=== PATIENT | female | born 1930 | race Caucasian/White ===

== ENCOUNTER 2017-05-16 15:16 | Inpatient (IN) ==
[2017-05-16] MEDS ORDERED: Ipratropium/Albuterol Neb 3 ML IH ONE ×2 (15:50→18:41)
[2017-05-16] MEDS ORDERED: methylPREDNISolone 125 MG/2 ML VIAL IVP ONE (15:50)
--- NOTE | 2017-05-16 15:51 | Emergency Department Note ---
Disposition Clinical Impression: COPD exacerbation, Elevated troponin Pneumonia Qualifiers: Pneumonia type: due to unspecified organism Laterality: bilateral Lung location : unspecified part of lung Qualified Code(s): J18.9 - Pneumonia, unspecified organism Disposition: Admitted As Inpatient Condition: Fair Time of Disposition: 18:52 General Adult HPI - General Chief complaint: ED Shortness of Breath/Dyspnea Stated complaint: congestion Time Seen by Provider: 05/16/17 15:41 Source: patient Limitations: no limitations Nursing Notes Reviewed: Yes Vital Signs Reviewed: Yes - History of Present Illness HPI Narrative: Patient is an 86-year-old female with a past medical of atrial fibrillation, HTN , ID, and COPD presenting to the emergency department for 3 days of wheezing and increasing shortness of breath. The patient was recently discharged from [facility] 3 days ago after having a total left knee replacement. She states on discharge she was feeling wheezy at that time however it is progressed over the past 3 days. She has also been spiking fevers according to family and they have been treating that with Tylenol and she has been doing at home albuterol treatments which she received 2 of yesterday. She states she is also more winded when she is up and ambulatory. Pain Scale: 6 - Related Data Home Medications Medication Instructions Recorded Confirmed Albuterol Sulfate [Ventolin Hfa] 2 puff IH Q4H PRN 05/17/17 05/17/17 Aspirin [Lo-Dose Aspirin EC] 81 mg PO DAILY 05/17/17 05/17/17 Dabigatran [Pradaxa] 150 mg PO BID 05/17/17 05/17/17 Diltiazem HCl [Diltiazem 24Hr Cd] 240 mg PO DAILY 05/17/17 05/17/17 Ferrous Sulfate [Iron] 325 mg PO DAILY 05/17/17 05/17/17 Fluticasone/Salmeterol [Advair 1 puff IH BID 05/17/17 05/17/17 500-50 Diskus] Furosemide [Lasix] 40 mg PO DAILY 05/17/17 05/17/17 HYDROcodone/Acet 5/325 mg [[place] 1 tab PO Q4-6H PRN 05/17/17 05/17/17 5-325 mg] Losartan Potassium [Cozaar] 50 mg PO DAILY 05/17/17 05/17/17 Metoprolol [Lopressor] 25 mg PO BID 05/17/17 05/17/17 Montelukast [Singulair] 10 mg PO HS 05/17/17 05/17/17 Potassium Chloride [Klor-Con 10] 10 meq PO BID 05/17/17 05/17/17 Sertraline [Zoloft] 100 mg PO DAILY 05/17/17 05/17/17 Vit C/E/Zn/Coppr/Lutein/Zeaxan 1 cap PO BID 05/17/17 05/17/17 [Preservision Areds 2 Softgel] Allergies Allergy/AdvReac Type Severity Reaction Status Date / Time acetaminophen [From Percocet] Allergy Confusion Verified 09/02/16 13:59 gabapentin [From Neurontin] Allergy See Verified 02/14/15 00:55 Comments Oxycodone [From Percocet] Allergy Confusion Verified 09/02/16 13:59 Sulfa (Sulfonamide Allergy Itching Verified 02/14/15 00:55 Antibiotics) All systems ED: reviewed and negative except as stated. Review of Systems: As Per HPI Constitutional: Reports: fever, chills ENT ED: Reports: congestion. Denies: throat pain Cardiovascular: Denies: chest pain, palpitations Respiratory: Reports: cough, dyspnea, wheezes Gastrointestinal: Reports: nausea, vomiting (Cough-induced). Denies: abdominal pain Genitourinary: Denies: urgency, dysuria Musculoskeletal: Denies: back pain, neck pain Integumentary: Denies: rash, abrasion Past Medical History - Past Medical History Attestation: Yes The following information was validated with the patient. Medical history: Reports: atrial fibrillation, cancer, COPD, CVA, hypertension, myocardial infarction Surgical history: Reports: hysterectomy Psychiatric history: Reports: no psych history JACKHAMMER SPLITTER OPERATOR history: Reports: no JACKHAMMER SPLITTER OPERATOR history - Social History Smoking Status: Never smoker Smokeless Tobacco Status: No Alcohol use: Reports: none Drug use: Reports: none Physical Exam CONSTITUTIONAL: Alert and oriented X3, she speaks in full sentences. She has auditory wheezing from bedside. Vital signs are stable at this time. HEAD: Normocephalic; atraumatic. EYES: PERRL, no scleral icterus. NOSE: The nose is normal in appearance without rhinorrhea RESP: Normal chest excursion with respiration; breath sounds are wheezing throughout all lung patiño CARD: Regular rhythm, without murmurs, rub or gallop ABD: Non-distended; non-tender, soft,without rigidity, rebound or guarding SKIN: Normal for age and race; warm and dry; no apparent lesions - General Limitations: no limitations General appearance: alert Course Course Narrative: With the patient's presentation and recent hospital admission the plan is to work her up for COPD versus pneumonia. We will also consider pulmonary embolism patient's labs results CTA of the chest will be ordered. We will start with steroids, breathing treatments and pending x-ray results initiate antibiotics. - Reevaluation(s) Reevaluation #1: IV antibiotics were initiated patient's chest x-ray shows a multifocal pneumonia. Cultures were obtained prior to antibiotic administration. She states she feels her breathing has improved, the patient does appear fatigued to place her on IV oxygen to assist with breathing. CTA is ordered to rule out pulmonary embolism. Plan at this time is to admit the patient for pneumonia and COPD exacerbation. Time: 17:15 Vital Signs Temperature 99.5 F 05/16/17 15:20 Pulse Rate 96 05/16/17 15:20 Respiratory Rate 20 05/16/17 15:20 Blood Pressure 126/74 05/16/17 15:20 O2 Sat by Pulse Oximetry 94 05/16/17 15:20 Temperature 98.6 F 05/20/17 18:45 Pulse Rate 77 05/20/17 18:45 Respiratory Rate 17 05/20/17 18:45 Blood Pressure 148/61 05/20/17 18:45 O2 Sat by Pulse Oximetry 95 05/20/17 18:45 Oxygen Delivery Oxygen Delivery Room Air Medical Decision Making - Medical Records Medical records reviewed: Yes I reviewed the patient's medical records. - Lab Data Lab results reviewed: Yes I reviewed the patient's lab results. Result diagrams: 05/20/17 04:45 05/20/17 04:45 Lab Results 05/16/17 05/16/17 05/16/17 Range/Units 15:50 16:20 16:20 WBC 4.3 (4.3-11.1) K/mcL RBC 2.78 L (3.82-4.97) M/mcL Hgb 7.9 L (11.5-15.4) g/dL Hct 24.4 L (35.3-44.9) % MCV 87.8 (83.0-100.0) fL MCH 28.4 (28.0-33.3) pg MCHC 32.4 (31.6-35.5) g/dL RDW 13.6 (11.5-14.5) % Plt Count 190 (140-400) K/mcL MPV 9.0 L (9.4-12.4) fL Immature Gran % 1.2 (0-4) % Seg Neutrophils % 81.1 % Lymphocytes % 7.1 % Monocytes % 10.4 % Eosinophils % 0.0 % Basophils % 0.2 % Neutrophils # 3.5 (1.6-8.9) K/mcL Lymphocytes # 0.3 L (0.6-4.6) K/mcL Monocytes # 0.4 (0.0-1.3) K/mcL Eosinophils # 0.0 (0.0-0.6) K/mcL Basophils # 0.0 (0.0-0.2) K/mcL Immature Plt Fraction 1.9 (1.1-6.1) % Sodium 137 (136-145) mEq/L Potassium 3.9 (3.5-5.1) mEq/L Chloride 106 (98-107) mEq/L Carbon Dioxide 23 (23-29) mEq/L BUN 17 (8-23) mg/dL Creatinine 0.73 (0.60-1.20) mg/dL Est GFR ( Amer) > 60 (> 60) Est GFR (Non-Af Amer) > 60 (> 60) BUN/Creatinine Ratio 23 (6-26) Glucose 129 H (70-105) mg/dL Calculated Osmolality 287 (280-300) Lactic Acid (0.5-2.2) mmol/L Calcium 8.5 L (8.6-10.3) mg/dL Troponin I 0.24 H* (< 0.04) ng/mL B-Natriuretic Peptide 611 H (Less than 100) pg/mL 05/16/17 Range/Units 17:31 WBC (4.3-11.1) K/mcL RBC (3.82-4.97) M/mcL Hgb (11.5-15.4) g/dL Hct (35.3-44.9) % MCV (83.0-100.0) fL MCH (28.0-33.3) pg MCHC (31.6-35.5) g/dL RDW (11.5-14.5) % Plt Count (140-400) K/mcL MPV (9.4-12.4) fL Immature Gran % (0-4) % Seg Neutrophils % % Lymphocytes % % Monocytes % % Eosinophils % % Basophils % % Neutrophils # (1.6-8.9) K/mcL Lymphocytes # (0.6-4.6) K/mcL Monocytes # (0.0-1.3) K/mcL Eosinophils # (0.0-0.6) K/mcL Basophils # (0.0-0.2) K/mcL Immature Plt Fraction (1.1-6.1) % Sodium (136-145) mEq/L Potassium (3.5-5.1) mEq/L Chloride (98-107) mEq/L Carbon Dioxide (23-29) mEq/L BUN (8-23) mg/dL Creatinine (0.60-1.20) mg/dL Est GFR ( Amer) (> 60) Est GFR (Non-Af Amer) (> 60) BUN/Creatinine Ratio (6-26) Glucose (70-105) mg/dL Calculated Osmolality (280-300) Lactic Acid 2.4 H (0.5-2.2) mmol/L Calcium (8.6-10.3) mg/dL Troponin I (< 0.04) ng/mL B-Natriuretic Peptide (Less than 100) pg/mL - Radiology Data Radiology results reviewed: Yes I reviewed the patient's radiology results. Chest X-Ray 05/16/17 15:50 IMPRESSION: 1. Focal right lower lobe consolidation and patchy opacities of the left lung base which are highly suspicious for multifocal pneumonia. 2. Mild central pulmonary vascular congestion. D/ / Navin Kumar MD / Navin Kumar MD Interpreting Provider: Navin Kumar MD - EKG Data EKG #1 EKG attestation: Yes I reviewed and interpreted this EKG. EKG results narrative: EKG done at 16:05 shows sinus rhythm at a rate of 71 bpm. MI is 178, QRS is 82 , QT is 293 and QTc is 416 these are within normal limits.No signs of ST elevation, depression or Q waves present. No signs of ischemia. This is unchanged when compared to EKG done on June 122015.
[2017-05-16 16:30] LABS: Basophils % 0.2 %; Hematocrit 24.4 % (35.3-44.9); Immature Granulocytes % 1.2 % (0-4); Immature Platelets 1.9 % (1.1-6.1); Lymphocytes # 0.3 K/mcL (0.6-4.6); Lymphocytes % 7.1 %; Mean Corpuscular HGB Conc 32.4 g/dL (31.6-35.5); Mean Corpuscular Hemoglobin 28.4 pg (28.0-33.3); Mean Corpuscular Volume 87.8 fL (83.0-100.0); Monocytes # 0.4 K/mcL (0.0-1.3); Monocytes % 10.4 %; Neutrophils # 3.5 K/mcL (1.6-8.9); Platelet Count 190 K/mcL (140-400); Red Blood Count 2.78 M/mcL (3.82-4.97); Red Cell Distribution Width 13.6 % (11.5-14.5); Segmented Neutrophils % 81.1 %
[2017-05-16] MEDS ORDERED: Cefepime HCl 2,000 MG in Water for inj. (sterile) 20 ML 20 ML IVP STA (17:00)
[2017-05-16 17:04] LABS: Troponin I 0.24 ng/mL (< 0.04)
[2017-05-16] MEDS ORDERED: Benzonatate 100 MG CAPSULE PO STA (17:05)
--- NOTE | 2017-05-16 17:42 | Emergency Department Note ---
START Narrative - START START: I examined this patient and my medical decision-making was reviewed with the Resident Physician. I agree with the documented findings, disposition and treatment plan as described except to the extent set forth below. 86-year-old female presents to the ER for cough and shortness of breath. She does had a recent left knee replacement done at [facility]. She presents today with cough and increasing shortness of breath associated with fevers and diaphoresis. Workup here reveals some pneumonia present. She has evidence of multifocal pneumonia. We did start her on [facility] hospital -acquired pneumonia with cefepime and vancomycin. She is hemodynamically stable.
[2017-05-16 18:10] LABS: BUN/Creatinine Ratio 23 (6-26); Blood Urea Nitrogen 17 mg/dL (8-23); Calcium 8.5 mg/dL (8.6-10.3); Carbon Dioxide 23 mEq/L (23-29); Chloride 106 mEq/L (98-107); Glucose 129 mg/dL (70-105); Osmolality,Calculated 287 (280-300); Potassium 3.9 mEq/L (3.5-5.1); Sodium 137 mEq/L (136-145); eGFR For African Americans > 60 (> 60); eGFR For Non-African Americans > 60 (> 60)
[2017-05-16 18:11] LABS: Hemoglobin 7.9 g/dL (11.5-15.4)
[2017-05-16] MEDS ORDERED: Naloxone 0.4 MG/ML INJ IVP PRN (20:08)
[2017-05-16] MEDS ORDERED: Ipratropium/Albuterol Neb 3 ML IH PRN (20:38)
--- NOTE | 2017-05-16 20:53 | Internal Med History&Physical ---
<Ramón Man Merary - Last Filed: 05/16/17 20:45> Date of Encounter: 05/16/17 Time of Encounter: 19:46 Assessment and Plan (1) HCAP (healthcare-associated pneumonia) Current visit: Yes Status: Acute Recently in the hospital, 5 days s/p right total knee replacement and discharged 3 days ago On exam with wheezes and rhonchi bilaterally Chest x-ray shows multifocal pneumonia, with consolidation in the right lower lobe and left base CTA of the chest shows no PE, multifocal pneumonia, and small bilateral pleural effusions Temperature 99.5, WBC 4.3 Lactic acid is elevated at 2.4, however the patient does not meet sepsis criteria. We will recheck lactic acid With recent hospitalization, there is concern for pseudomonas or MRSA Blood cultures and sputum culture are pending. Rapid influenza pending Will start cefepime and vancomycin CODE STATUS: discussed code status with the patient. She does not want CPR or Intubation. DNR-CCA, DNI. (2) COPD exacerbation Current visit: Yes Status: Acute Wheezes throughout lung patiño on exam Exacerbation of COPD is secondary to multifocal pneumonia Upon my assessment the patient's oxygen saturation is mid-upper 90's on RA Will provide prednisone 40 mg daily and DuoNeb's (3) Elevated troponin Current visit: Yes Status: Acute Troponin 0.24. ECG shows normal sinus rhythm with no ST elevation or depression. Patient denies chest pain Patient does have a history of CAD. Stress test on 05/07/17 showed no evidence of ischemia Patient does take Lasix for lower extremity edema, there is no history of CHF - BNP is elevated at 611, but patient does not appear clinically fluid overload. Will continue home Lasix - At this time Dyspnea appears secondary to PNA and COPD exacerbation Likely demand ischemia, but will continue to trend troponins x3 (4) Anemia Current visit: Yes Status: Acute Hemoglobin is 7.9, which is lower than previous evaluations (9-12) Patient did report having a dark bowel movement this morning, but she has been taking iron supplementation She denies hematochezia, hematuria, or hemoptysis Likely related to having surgery 5 days ago, will continue iron supplementation and continue to monitor CBC Qualifiers: Anemia type: unspecified type Qualified Code(s): D64.9 - Anemia, unspecified (5) Atrial fibrillation Current visit: No Status: Acute Currently in normal sinus rhythm and rate controlled Anticoagulation with Peridex, will continue during this hospitalization Qualifiers: Atrial fibrillation type: paroxysmal Qualified Code(s): I48.0 - Paroxysmal atrial fibrillation (6) Hypertension Current visit: No Status: Chronic Normotensive currently. Continue home medications Qualifiers: Hypertension type: essential hypertension Qualified Code(s): I10 - Essential (primary) hypertension (7) DVT prophylaxis Current visit: Yes Status: Acute On Pradaxa Internal Medicine - H&P: HPI Chief complaint: Dyspnea Admitted From: Emergency Dept History of present illness: Ms. Ho is a 86 year old female with PMH of A. fib, hypertension, COPD, previous PA, and CVA, presented in the emergency department with chief complaint dyspnea and wheezing. She was recently at [facility] for a right total knee replacement, and was discharged 3 days ago. She reports no problems with the surgery, and that her knee is doing well, but since discharge she has been having worsening shortness of breath and wheezing. Associated symptoms include fatigue, fever, chills, headache, lightheadedness, chest congestion, productive cough, nausea, and vomiting. Her symptoms are worse with exertion. She does admit to some orthopnea, however her lower extremity edema is unchanged. She denies syncope, chest pain, abdominal pain, change in bowels, hematochezia, dysuria, or hematuria. She does report a darker bowel movement this morning, her first BM since surgery, started on iron supplementation upon discharge from the hospital. She reports that her knee has been doing well, and she denies swelling in her knee or drainage from the incision. She is able to ambulate well and states that her pain is controlled with Tylenol. She is not fond of codeine or Percocet. Past Med Surg Social Fam HX - Past Medical History Medical history: atrial fibrillation, cancer, COPD, CVA, hypertension, myocardial infarction Psychiatric history: no psych history - Past Surgical History Surgical History: hysterectomy - Social History Smoking Status: Never smoker Smokeless Tobacco Status: No Alcohol use: none Drug use: none - Family History Mother Hx Family Cardiac Disorders: Yes (PA) Hx Family Neurologic Disorders: Yes (Stroke) Father Hx Family Cardiac Disorders: Yes (PA) Hx Family Neurologic Disorders: Yes (Stroke) Internal Medicine - H&P: Meds Albuterol Sulfate [Albuterol Inhaler] 2 puff IH Q4HR 02/15/15 [History] Aspirin [Adult Low Dose Aspirin EC] 81 mg PO QAM 02/15/15 [History] Atorvastatin [Lipitor] 10 mg PO QAM 02/15/15 [History] Dabigatran [Pradaxa] 150 mg PO BID 02/15/15 [History] Ergocalciferol (VITAMIN D2) [Vitamin D2 (50,000 UNIT)] 50,000 unit PO QWEEK PRN 02/15/15 [History] Furosemide [Lasix] 40 mg PO QAM 02/15/15 [History] Linaclotide [Linzess] 290 mcg PO DAILY 02/15/15 [History] Losartan [Cozaar] 50 mg PO QAM 02/15/15 [History] Montelukast [Singulair] 10 mg PO QPM 02/15/15 [History] Sertraline [Zoloft] 50 mg PO QAM 02/15/15 [History] Azithromycin [Zithromax] 250 mg PO Q24H #3 tablet 02/20/15 [Rx] B Complex with Vitamin C [Vitamin B-Complex with Vit C] 1 each PO DAILY #30 capsule 02/20/15 [Rx] Cefdinir [Omnicef] 300 mg PO BID #14 capsule 02/20/15 [Rx] Diltiazem CD (24hr) [Cardizem CD] 240 mg PO DAILY #30 cap.er.24h 02/20/15 [Rx] HYDROcodone BIT/Homatropine LQ [Hycodan Syrup] 5 mg PO Q4HR PRN #60 ml 02/20/15 [Rx] Ipratropium/Albuterol Neb [Duoneb] 3 ml IH Q2H PRN #120 inhsol 02/20/15 [Rx] Metoprolol [Lopressor] 50 mg PO BID #60 tablet 02/20/15 [Rx] Spironolactone [Aldactone] 25 mg PO DAILY #30 tablet 02/20/15 [Rx] predniSONE [PredniSONE] 20 mg PO DAILY #7 tablet 02/20/15 [Rx] Ondansetron [Zofran] 4 mg PO Q8HR #25 tablet 06/10/15 [Rx] OxyCODONE/APAP 5/325 [Percocet 5/325 MG] 1 each PO Q4HR PRN #20 tablet 04/10/16 [Rx] Acyclovir [Zovirax] 800 mg PO 5XD #35 tablet 09/02/16 [Rx] Cephalexin [Keflex] 500 mg PO BID #20 capsule 09/02/16 [Rx] Mupirocin [Bactroban Oint] 1 appl TP BID #1 tube 09/02/16 [Rx] 3 Allergy/AdvReac Type Severity Reaction Status Date / Time acetaminophen [From Percocet] Allergy Confusion Verified 09/02/16 13:59 gabapentin [From Neurontin] Allergy See Verified 02/14/15 00:55 Comments Oxycodone [From Percocet] Allergy Confusion Verified 09/02/16 13:59 Sulfa (Sulfonamide Allergy Itching Verified 02/14/15 00:55 Antibiotics) All Systems PM: A 10-system review of systems was performed and is negative for pertinent findings except as documented above in the HPI. - Constitutional Vitals: Temp Pulse Resp BP Pulse Ox 99.5 F 84 18 121/58 93 05/16/17 15:20 05/16/17 20:20 05/16/17 20:20 05/16/17 20:20 05/16/17 20:20 General appearance: Present: A&O X 3, no acute distress, answers questions appropriately - Head Head exam: Present: atraumatic, normocephalic - Eye Eye exam: Present: PERRL, conjuntiva pink, sclera anicteric - Neck Neck exam general surgery: Present: supple, trachea midline. Absent: lymphadenopathy - Respiratory Respiratory exam: Present: rhonchi (bilaterally, worse in bases), wheezes ( bilaterally throughout). Absent: accessory muscle use, CTAB, rales - Cardiovascular Cardiovascular exam: Present: RRR, +S1, +S2. Absent: diastolic murmur, systolic murmur - GI/Abdominal GI/Abdominal exam: Present: normal bowel sounds, soft, no peritoneal signs. Absent: distended, tenderness - Extremities Exam Extremities exam: Present: normal capillary refill, normal inspection, pedal edema (mild bilaterally), warm, radial pulses palpable and symmetrical. Absent : calf tenderness, cyanotic, joint swelling Additional comments: Bandage in place around right knee, no drainage noted on bandage - Neurological Exam Neurological exam: Present: CN II-XII intact, oriented X3, no focal deficits. Absent: facial droop, speech deficit - Skin Skin exam: Present: dry, intact. Absent: diaphoretic, erythema Internal Med - H&P Results - Labs CBC & Chem 7: 05/16/17 16:20 05/16/17 15:50 <Pauly Cope - Last Filed: 05/16/17 22:22> Date of Encounter: 05/16/17 Internal Medicine - H&P: HPI History of present illness: Ms. Ho is a 86 year old female All Systems PM: A 10-system review of systems was performed and is negative for pertinent findings except as documented above in the HPI. - Constitutional Vitals: Temp Pulse Resp BP Pulse Ox 98.5 F 83 18 120/61 95 05/16/17 21:07 05/16/17 21:07 05/16/17 21:07 05/16/17 21:07 05/16/17 21:07 Internal Med - H&P Results - Labs CBC & Chem 7: 05/16/17 16:20 05/16/17 15:50 - Attending Attestation I have seen and examined this patient independently. I have discussed with resident physician Dr. Man regarding the management plan. Agree with the documentation
[2017-05-16] MEDS: Ipratropium/Albuterol Neb 3 ML IH SCH (22:28)
[2017-05-16] MEDS: *HR* Dabigatran 150 MG CAPSULE PO SCH (22:48)
[2017-05-17] MEDS ORDERED: Ipratropium/Albuterol Neb 3 ML IH SCH
[2017-05-17] MEDS: Cefepime HCl 2,000 MG in Water for inj. (sterile) 20 ML 20 ML IVP SCH ×3 (03:36→17:04)
[2017-05-17] MEDS: Ipratropium/Albuterol Neb 3 ML IH SCH ×4 (03:45→21:39)
[2017-05-17 05:58] LABS: Hemoglobin 7.8 g/dL (11.5-15.4); Lymphocytes # 0.4 K/mcL (0.6-4.6); Lymphocytes % 13.4 %; Mean Corpuscular HGB Conc 32.5 g/dL (31.6-35.5); Mean Platelet Volume 9.7 fL (9.4-12.4); Monocytes # 0.1 K/mcL (0.0-1.3); Monocytes % 4.8 %; Neutrophils # 2.3 K/mcL (1.6-8.9); Platelet Count 166 K/mcL (140-400); Red Blood Count 2.79 M/mcL (3.82-4.97); Red Cell Distribution Width 13.7 % (11.5-14.5); Segmented Neutrophils % 80.8 %
[2017-05-17 06:01] LABS: INR 1.5
[2017-05-17 06:03] LABS: Activated Partial Thrombo Time 45.9 Seconds (26.0-36.0)
[2017-05-17 06:27] LABS: BUN/Creatinine Ratio 27 (6-26); Blood Urea Nitrogen 19 mg/dL (8-23); Calcium 8.5 mg/dL (8.6-10.3); Carbon Dioxide 23 mEq/L (23-29); Chloride 107 mEq/L (98-107); Glucose 202 mg/dL (70-105); Osmolality,Calculated 294 (280-300); Potassium 4.2 mEq/L (3.5-5.1); Sodium 138 mEq/L (136-145); eGFR For African Americans > 60 (> 60); eGFR For Non-African Americans > 60 (> 60)
[2017-05-17] MEDS: (Linaclotide [Linzess] 290 MCG) PO SCH (07:33)
[2017-05-17] MEDS: Aspirin Enteric Coated 81 MG Tablet PO SCH (08:43)
[2017-05-17] MEDS: predniSONE 20 MG TABLET PO SCH (08:43)
[2017-05-17] MEDS: Diltiazem CD (24hr) 240 MG CAPSULE PO SCH (08:43)
[2017-05-17] MEDS: *HR* Dabigatran 150 MG CAPSULE PO SCH ×2 (08:43→21:13)
[2017-05-17] MEDS: Vitamin B Complex/Vit C/Vit E 1 EACH TABLET PO SCH (08:44)
[2017-05-17] MEDS: Iron Polysaccharide Complex 150 MG CAPSULE PO SCH (08:44)
[2017-05-17] MEDS: Furosemide 40 MG TABLET PO SCH (08:48)
[2017-05-17] MEDS: Acetaminophen 325 MG TABLET PO PRN (10:32)
[2017-05-17 11:44] LABS: Hematocrit 24.6 % (35.3-44.9); Hemoglobin 8.2 g/dL (11.5-15.4)
--- NOTE | 2017-05-17 13:40 | Internal Med Progress Note ---
Date of Encounter: 05/17/17 Time of Encounter: 10:30 - Assessment and plan (1) Anemia Current Visit: Yes Status: Acute Assessment and plan: Continue FeS04. Trending, improving today. Qualifiers: Anemia type: unspecified type Qualified Code(s): D64.9 - Anemia, unspecified (2) COPD exacerbation Current Visit: Yes Status: Acute Assessment and plan: Acute exacerbation, secondary to pneumonia. Wheezing throughout all lung patiño. Continue 02-maintain sats > 92% Duonebs Prednisone 40mg po daily (3) Elevated troponin Current Visit: Yes Status: Acute Assessment and plan: Flat and adynamic elevation that is declining in the setting of CHF, pna, and Copd exacerbation. Most likely demand ischemia. Pt denies chest pain. Continue telemetry (4) HCAP (healthcare-associated pneumonia) Current Visit: Yes Status: Acute Assessment and plan: Left knee replacement 6 days ago, discharged 3 days ago from [place]. Pt being treated for HCAP with Cefepime and Vancomycin iv Sputum culture negative. Pt afebrile and without tachycardia. Chest xray shows multifocal pna, small bilateral pleural effusions, CTA chest shows no PE. Lactic was elevated, however, returned to WNL continue IV antibiotics Monitor VS and pt condition 02 as needed to maintain sats > 92% (5) Atrial fibrillation Current Visit: Yes Status: Acute Assessment and plan: Rate controlled. Continue BB and Pradaxa. Qualifiers: Atrial fibrillation type: paroxysmal Qualified Code(s): I48.0 - Paroxysmal atrial fibrillation (6) Hypertension Current Visit: No Status: Chronic Assessment and plan: Chronic. Continue home medications. Well controlled. Monitor VS per admission orders. Qualifiers: Hypertension type: essential hypertension Qualified Code(s): I10 - Essential (primary) hypertension (7) DVT prophylaxis Current Visit: Yes Status: Acute Assessment and plan: CAROLEE huddleston ordered and applied - Time Spent With Patient less than 15 minutes - Constitutional Vitals: Temp Pulse Resp BP Pulse Ox 98.7 F 76 16 124/62 95 05/17/17 11:39 05/17/17 11:39 05/17/17 11:39 05/17/17 11:39 05/17/17 11:39 General appearance: Present: cooperative, A&O X 3, pleasant, no acute distress, answers questions appropriately - Head Head exam: Present: atraumatic, normal inspection, normocephalic - Eye Eye exam: Present: normal appearance, conjuntiva pink, sclera anicteric - Neck Neck exam general surgery: Present: supple, trachea midline. Absent: lymphadenopathy, tenderness - Respiratory Respiratory exam: Present: decreased breath sounds, wheezes. Absent: accessory muscle use, CTAB, rales, respiratory distress, rhonchi - Cardiovascular Cardiovascular exam: Present: RRR, +S1, +S2. Absent: bradycardia, diastolic murmur, gallop, rubs, systolic murmur, tachycardia - GI/Abdominal GI/Abdominal exam: Present: normal bowel sounds, soft. Absent: distended, hepatomegaly, tenderness - Extremities Exam Extremities exam: Present: normal capillary refill, normal inspection, warm, radial pulses palpable and symmetrical. Absent: calf tenderness, cyanotic, pedal edema, tenderness Additional comments: Patient with moderate left lower extremity edema status post knee replacement 6 days ago. - Neurological Exam Neurological exam: Present: alert, oriented X3, no focal deficits. Absent: facial droop, speech deficit - Skin Skin exam: Present: dry, intact, normal color, warm. Absent: rash Internal Medicine: Result - Labs CBC & Chem 7: 05/17/17 11:09 05/17/17 05:20 Labs: Short CBC 05/17/17 05/17/17 Range/Units 05:20 11:09 WBC 2.9 L (4.3-11.1) K/mcL Hgb 7.8 L 8.2 L (11.5-15.4) g/dL Hct 24.0 L 24.6 L (35.3-44.9) % Plt Count 166 (140-400) K/mcL Neutrophils # 2.3 (1.6-8.9) K/mcL BMP 05/17/17 05:20 Sodium 138 Potassium 4.2 Chloride 107 Carbon Dioxide 23 BUN 19 Creatinine 0.70 Glucose 202 H Calcium 8.5 L Cardiac Enzymes 05/16/17 05/17/17 Range/Units 21:44 05:20 Troponin I 0.19 H* 0.10 H* (< 0.04) ng/mL - ABG Interpretation ABG results: PT/INR, D-dimer PT 16.0 Seconds (9.4-12.1) H 05/17/17 05:20 Consult Discharge Plan - Plan Referrals: Glenis Kirk MD [Primary Care Provider] -
[2017-05-17 16:54] LABS: Hematocrit 24.6 % (35.3-44.9); Hemoglobin 8.1 g/dL (11.5-15.4)
[2017-05-17 22:06] LABS: Hematocrit 23.5 % (35.3-44.9); Hemoglobin 7.6 g/dL (11.5-15.4)
[2017-05-18] MEDS: Ipratropium/Albuterol Neb 3 ML IH SCH ×4 (04:16→22:05)
[2017-05-18] MEDS: Cefepime HCl 2,000 MG in Water for inj. (sterile) 20 ML 20 ML IVP SCH ×3 (04:26→17:11)
[2017-05-18] MEDS: Acetaminophen 325 MG TABLET PO PRN (05:09)
[2017-05-18 05:10] LABS: Basophils % 0.1 %; Hematocrit 23.2 % (35.3-44.9); Hemoglobin 7.7 g/dL (11.5-15.4); Lymphocytes # 1.3 K/mcL (0.6-4.6); Lymphocytes % 16.2 %; Mean Corpuscular HGB Conc 33.2 g/dL (31.6-35.5); Mean Corpuscular Hemoglobin 28.6 pg (28.0-33.3); Mean Corpuscular Volume 86.2 fL (83.0-100.0); Mean Platelet Volume 9.6 fL (9.4-12.4); Monocytes # 0.7 K/mcL (0.0-1.3); Monocytes % 8.1 %; Neutrophils # 6.1 K/mcL (1.6-8.9); Platelet Count 206 K/mcL (140-400); Red Blood Count 2.69 M/mcL (3.82-4.97); Segmented Neutrophils % 74.6 %
[2017-05-18 05:21] LABS: Platelet Estimate Normal (Normal)
[2017-05-18 05:23] LABS: Anisocytosis 1+ (Not Present)
[2017-05-18 05:31] LABS: BUN/Creatinine Ratio 30 (6-26); Blood Urea Nitrogen 25 mg/dL (8-23); Carbon Dioxide 23 mEq/L (23-29); Chloride 107 mEq/L (98-107); Glucose 115 mg/dL (70-105); Osmolality,Calculated 291 (280-300); Potassium 3.6 mEq/L (3.5-5.1); Sodium 138 mEq/L (136-145); eGFR For African Americans > 60 (> 60); eGFR For Non-African Americans > 60 (> 60)
[2017-05-18 08:36] LABS: % Iron Saturation 9 % (15-50); Iron 25 mcg/dL (50-170); Transferrin 191 mg/dL (203-362)
[2017-05-18 09:02] LABS: Folate 18.3 ng/mL (3.0-16.0)
[2017-05-18] MEDS: *HR* Dabigatran 150 MG CAPSULE PO SCH ×2 (10:01→20:04)
[2017-05-18] MEDS: Furosemide 40 MG TABLET PO SCH (10:02)
[2017-05-18] MEDS: Aspirin Enteric Coated 81 MG Tablet PO SCH (10:02)
[2017-05-18] MEDS: predniSONE 20 MG TABLET PO SCH (10:02)
[2017-05-18] MEDS: Vitamin B Complex/Vit C/Vit E 1 EACH TABLET PO SCH (10:02)
[2017-05-18] MEDS: Iron Polysaccharide Complex 150 MG CAPSULE PO SCH (10:02)
[2017-05-18] MEDS: Diltiazem CD (24hr) 240 MG CAPSULE PO SCH (10:02)
[2017-05-18] MEDS: (Linaclotide [Linzess] 290 MCG) PO SCH (10:07)
[2017-05-18 10:53] LABS: Hematocrit 24.9 % (35.3-44.9)
[2017-05-18 12:15] LABS: Bilirubin,Urine Negative (Negative); Blood,Urine Negative (Negative); Clarity,Urine Clear (Clear); Color,Urine Yellow (Yellow); Glucose,Urine (UA) Normal (Normal); Ketones,Urine Negative (Negative); Leukocyte Esterase,Urine Negative (Negative); Nitrite,Urine Negative (Negative); Protein,Urine Negative (Neg-Trace); Specific Gravity,Urine 1.011 (1.010-1.025); Urobilinogen,Urine Normal (Normal)
[2017-05-18 15:51] LABS: Hematocrit 27.6 % (35.3-44.9)
--- NOTE | 2017-05-18 19:09 | Internal Med Progress Note ---
Date of Encounter: 05/18/17 Time of Encounter: 10:25 - Assessment and plan (1) Anemia Current Visit: Yes Status: Acute Assessment and plan: Continue FeS04. Trending, improving today. Iron is still low at 25, percent saturation is 9. Hemoglobin is increasing, serial troponins throughout the day has increased from 7.7-9.0. Continue to monitor labs daily. Qualifiers: Anemia type: unspecified type Qualified Code(s): D64.9 - Anemia, unspecified (2) COPD exacerbation Current Visit: Yes Status: Acute Assessment and plan: Acute exacerbation, secondary to pneumonia. Wheezing throughout all lung patiño. Patient and family at bedside reports that despite audible wheezing, patient is approximately at her 80% baseline. Patient and family both report chronic audible wheezing daily. Continue 02-maintain sats > 92% Duonebs Prednisone 40mg po daily (3) Elevated troponin Current Visit: Yes Status: Acute Assessment and plan: Flat and adynamic elevation that is declining in the setting of CHF, pna, and Copd exacerbation. Most likely demand ischemia. Pt denies chest pain. Continue telemetry (4) HCAP (healthcare-associated pneumonia) Current Visit: Yes Status: Acute Assessment and plan: Recent admission at [facility] for left knee surgery. Pt being treated for HCAP with Cefepime and Vancomycin iv Sputum culture negative. Pt afebrile and with tachycardia, no leukocytosis. Chest xray shows multifocal pna, small bilateral pleural effusions, CTA chest shows no PE. Lactic was elevated, however, returned to WNL continue IV antibiotics Monitor VS and pt condition 02 as needed to maintain sats > 92% (5) Atrial fibrillation Current Visit: Yes Status: Acute Assessment and plan: Paroxysmal A. fib, patient has been with rate over 100-120 today. Continue BB and Pradaxa. Most likely due to nebulizer treatments, have changed to Xopenex. Monitor and consider cardiology consult if continued uncontrolled rate. Qualifiers: Atrial fibrillation type: paroxysmal Qualified Code(s): I48.0 - Paroxysmal atrial fibrillation (6) Hypertension Current Visit: No Status: Chronic Assessment and plan: Chronic. Continue home medications. Well controlled. Monitor VS Qualifiers: Hypertension type: essential hypertension Qualified Code(s): I10 - Essential (primary) hypertension (7) DVT prophylaxis Current Visit: Yes Status: Acute Assessment and plan: CAROLEE huddleston ordered and applied, pt with recent knee surgery. - Time Spent With Patient less than 15 minutes - Subjective Interval history: Patient was seen and assessed at bedside at 1025. She is aware of daily plan of care and verbalized understanding. She denies any headache, blurred vision, chest pain, shortness of breath, abdominal pain, nausea vomiting or diarrhea. Patient reports that she has been having dark tarry stools, however she is on iron supplements for the last week. Normal bowel movement this morning. She denies any cramping, does report some epigastric pain, is tender to palpation. Patient reports increased abdominal distention, as well. KUB was ordered late. Continue to monitor labs. - Constitutional Vitals: Temp Pulse Resp BP Pulse Ox 99 F 114 16 111/76 98 05/18/17 18:46 05/18/17 18:46 05/18/17 18:46 05/18/17 18:46 05/18/17 18:46 General appearance: Present: cooperative, A&O X 3, pleasant, no acute distress, answers questions appropriately - Head Head exam: Present: atraumatic, normal inspection, normocephalic - Eye Eye exam: Present: conjuntiva pink, sclera anicteric - Neck Neck exam general surgery: Present: supple, trachea midline. Absent: lymphadenopathy, tenderness - Respiratory Respiratory exam: Present: CTAB. Absent: accessory muscle use, rales, rhonchi, wheezes - Cardiovascular Cardiovascular exam: Present: RRR, +S1, +S2. Absent: diastolic murmur, gallop, rubs, systolic murmur - GI/Abdominal GI/Abdominal exam: Present: normal bowel sounds, soft, tenderness. Absent: distended, hepatomegaly - Extremities Exam Extremities exam: Present: normal capillary refill, warm, radial pulses palpable and symmetrical. Absent: calf tenderness, cyanotic, pedal edema, tenderness - Neurological Exam Neurological exam: Present: CN II-XII intact, oriented X3, no focal deficits. Absent: pronater drift, facial droop, speech deficit - Skin Skin exam: Present: dry, intact, normal color, warm. Absent: rash Internal Medicine: Result - Labs CBC & Chem 7: 05/18/17 15:39 05/18/17 04:50 Labs: Short CBC 05/17/17 05/18/17 05/18/17 Range/Units 21:49 04:50 10:40 WBC 8.2 D (4.3-11.1) K/mcL Hgb 7.6 L 7.7 L 8.0 L (11.5-15.4) g/dL Hct 23.5 L 23.2 L 24.9 L (35.3-44.9) % Plt Count 206 (140-400) K/mcL Neutrophils # 6.1 (1.6-8.9) K/mcL 05/18/17 Range/Units 15:39 WBC (4.3-11.1) K/mcL Hgb 9.0 L (11.5-15.4) g/dL Hct 27.6 L (35.3-44.9) % Plt Count (140-400) K/mcL Neutrophils # (1.6-8.9) K/mcL BMP 05/18/17 04:50 Sodium 138 Potassium 3.6 Chloride 107 Carbon Dioxide 23 BUN 25 H Creatinine 0.82 Glucose 115 H Calcium 8.0 L Urine 05/18/17 Range/Units 11:30 Urine Color Yellow (Yellow) Urine Clarity Clear (Clear) Urine pH 6.0 (5.0-8.0) pH Units Ur Specific [place] 1.011 (1.010-1.025) Urine Protein Negative (Neg-Trace) mg/dL Urine Glucose (UA) Normal (Normal) mg/dL - ABG Interpretation ABG results: PT/INR, D-dimer PT 16.0 Seconds (9.4-12.1) H 05/17/17 05:20 - VTE Documentation of Mechanical Device: Graduated compression elastic hosiery Consult Discharge Plan - Plan Referrals: Glenis Kirk MD [Primary Care Provider] -
[2017-05-18] MEDS: Levalbuterol Neb 1.25 MG/3 ML IH SCH ×2 (19:38→22:04)
[2017-05-18] MEDS ORDERED: *HR* Metoprolol 5 MG/5 ML VIAL IVP PRN (20:05)
[2017-05-18] MEDS ORDERED: Ondansetron 4 MG/2 ML VIAL IVP PRN (23:47)
[2017-05-18] MEDS ORDERED: Ondansetron 4 MG/2 ML VIAL ONE (23:49)
[2017-05-19] MEDS: Cefepime HCl 2,000 MG in Water for inj. (sterile) 20 ML 20 ML IVP SCH ×4 (02:02→18:05)
[2017-05-19] MEDS: Levalbuterol Neb 1.25 MG/3 ML IH SCH ×4 (03:48→21:59)
[2017-05-19] MEDS: Ipratropium/Albuterol Neb 3 ML IH SCH ×4 (03:49→21:57)
[2017-05-19] MEDS: *HR* Dabigatran 150 MG CAPSULE PO SCH ×2 (07:54→20:32)
[2017-05-19] MEDS: Vitamin B Complex/Vit C/Vit E 1 EACH TABLET PO SCH (07:54)
[2017-05-19] MEDS: predniSONE 20 MG TABLET PO SCH (07:54)
[2017-05-19] MEDS: Furosemide 40 MG TABLET PO SCH (07:54)
[2017-05-19] MEDS: Diltiazem CD (24hr) 240 MG CAPSULE PO SCH (07:54)
[2017-05-19] MEDS: Iron Polysaccharide Complex 150 MG CAPSULE PO SCH (07:54)
[2017-05-19] MEDS: Aspirin Enteric Coated 81 MG Tablet PO SCH (07:54)
[2017-05-19] MEDS: Acetaminophen 325 MG TABLET PO PRN (08:07)
[2017-05-19] MEDS: (Linaclotide [Linzess] 290 MCG) PO SCH (10:40)
[2017-05-19] MEDS ORDERED: Vancomycin 1,000 MG VIAL ONE (17:56)
--- NOTE | 2017-05-19 18:46 | Internal Med Progress Note ---
Date of Encounter: 05/19/17 Time of Encounter: 18:44 - Assessment and plan (1) Anemia Current Visit: Yes Status: Acute Assessment and plan: Continue iron supplement Trend hemoglobin and hematocrit Stool for occult blood was positive the patient has constipated stools Spoke to the patient regarding heme positive stools and a colonoscopy and she declines at this time Qualifiers: Anemia type: iron deficiency Iron deficiency anemia type: unspecified iron deficiency Qualified Code(s): D50.9 - Iron deficiency anemia, unspecified (2) Atrial fibrillation Current Visit: Yes Status: Chronic Assessment and plan: Patient converted to a sinus rhythm in the 70s and 80s overnight. She had been in atrial fibrillation rate in the 120s yesterday. Qualifiers: Atrial fibrillation type: paroxysmal Qualified Code(s): I48.0 - Paroxysmal atrial fibrillation (3) COPD exacerbation Current Visit: Yes Status: Acute Assessment and plan: Exacerbation secondary to pneumonia. Patient continues to wheeze with some scattered rhonchi and a harsh cough on forced expiration Continue duo nebs. Continue antibiotics Continue prednisone 40 daily, consider pulmonary consult in a.m. if she is no better (4) DVT prophylaxis Current Visit: Yes Status: Acute Assessment and plan: CAROLEE huddleston (5) Elevated troponin Current Visit: Yes Status: Acute Assessment and plan: Flat and adynamic elevation declining in the setting of pneumonia, CHF, and COPD exacerbation. Likely demand ischemia No chest pain Continue cardiac monitoring now in a sinus rhythm (6) HCAP (healthcare-associated pneumonia) Current Visit: Yes Status: Acute Assessment and plan: Patient was recently hospitalized at [facility] for left knee surgery. She is being treated for HCAP with cefepime and vancomycin. Sputum culture is positive for moderate yeast Blood cultures preliminary no growth O2 currently at 3 L to maintain sats greater than 92% (7) Hypertension Current Visit: No Status: Chronic Assessment and plan: Blood pressure is stable Qualifiers: Hypertension type: essential hypertension Qualified Code(s): I10 - Essential (primary) hypertension - Subjective Interval history: Patient denies fever, chills, chest pain, abdominal pain. She still feels a little constipated. She is a little weak and dyspneic on exertion - Constitutional Vitals: Temp Pulse Resp BP Pulse Ox 978.8 F H 70 18 125/56 94 05/19/17 15:09 05/19/17 15:09 05/19/17 15:48 05/19/17 15:09 05/19/17 15:48 General appearance: Present: cooperative, A&O X 3, pleasant, answers questions appropriately - Head Head exam: Present: atraumatic, normocephalic - Eye Eye exam: Present: PERRL, conjuntiva pink, sclera anicteric Pupils: Present: PERRL - Neck Neck exam general surgery: Present: supple, trachea midline. Absent: lymphadenopathy - Respiratory Respiratory exam: Present: decreased breath sounds, CTAB. Absent: accessory muscle use, rales, rhonchi, wheezes - Cardiovascular Cardiovascular exam: Present: RRR, +S1, +S2. Absent: diastolic murmur, gallop, rubs, systolic murmur - GI/Abdominal GI/Abdominal exam: Present: normal bowel sounds, soft, no peritoneal signs. Absent: distended, guarding, tenderness - Extremities Exam Extremities exam: Present: warm, radial pulses palpable and symmetrical. Absent : calf tenderness, cyanotic, pedal edema - Neurological Exam Neurological exam: Present: alert, CN II-XII intact, oriented X3, no focal deficits. Absent: pronater drift, facial droop, speech deficit - Skin Skin exam: Present: dry, normal color, warm Additional comments: Dressing dry and intact to her left knee Internal Medicine: Result - Labs CBC & Chem 7: 05/18/17 15:39 05/18/17 04:50 - ABG Interpretation ABG results: PT/INR, D-dimer PT 16.0 Seconds (9.4-12.1) H 05/17/17 05:20 - Impressions Impressions KUB X-Ray 05/18/17 19:09 IMPRESSION: Nonspecific abdominal bowel gas pattern. D/ / Tahir Mills MD / Tahir Mills MD Interpreting Provider: Tahir Mills MD - VTE Documentation of Mechanical Device: Graduated compression elastic hosiery Consult Discharge Plan - Plan Referrals: Glenis Kirk MD [Primary Care Provider] -
[2017-05-19] MEDS: Lactulose Oral Soln 20 GM/30 ML UDC PO SCH (20:32)
--- NOTE | 2017-05-19 23:26 | Electrocardiograph Report ---
[place] [id number] Test Date: 2017-05-18 Pat Name: Ricarda Ho Department: 113 Room: 3B Gender: F Schedule Planning Manager: : [id number] Requested By: Jenifer Morgan Order Number: [id number] Reading MD: Bernabe Rhoades DO Measurements Intervals [place] Rate: 81 P: [place]: 0 QRS: 5 QRSD: 94 T: 3 QT: 399 QTc: 436 Interpretive Statements ATRIAL FIBRILLATION V2 NOT SUITABLE FOR ANALYSIS Electronically Signed On 05-19-2017 23:24:26 EDT by Bernabe Rhoades DO
[2017-05-20] MEDS: Cefepime HCl 2,000 MG in Water for inj. (sterile) 20 ML 20 ML IVP SCH ×3 (02:05→18:15)
[2017-05-20] MEDS: Ipratropium/Albuterol Neb 3 ML IH SCH ×5 (03:38→23:19)
[2017-05-20] MEDS: Levalbuterol Neb 1.25 MG/3 ML IH SCH ×3 (03:39→15:50)
[2017-05-20 05:24] LABS: Hemoglobin 7.8 g/dL (11.5-15.4); Mean Corpuscular HGB Conc 31.2 g/dL (31.6-35.5); Mean Corpuscular Hemoglobin 27.8 pg (28.0-33.3); Mean Platelet Volume 9.5 fL (9.4-12.4); Platelet Count 256 K/mcL (140-400); Red Blood Count 2.81 M/mcL (3.82-4.97); Red Cell Distribution Width 13.9 % (11.5-14.5)
[2017-05-20 05:43] LABS: BUN/Creatinine Ratio 34 (6-26); Blood Urea Nitrogen 28 mg/dL (8-23); Calcium 8.8 mg/dL (8.6-10.3); Carbon Dioxide 27 mEq/L (23-29); Chloride 106 mEq/L (98-107); Glucose 95 mg/dL (70-105); Osmolality,Calculated 295 (280-300); Potassium 3.5 mEq/L (3.5-5.1); Sodium 140 mEq/L (136-145); eGFR For African Americans > 60 (> 60); eGFR For Non-African Americans > 60 (> 60)
[2017-05-20] MEDS: Aspirin Enteric Coated 81 MG Tablet PO SCH (09:23)
[2017-05-20] MEDS: Diltiazem CD (24hr) 240 MG CAPSULE PO SCH (09:23)
[2017-05-20] MEDS: predniSONE 20 MG TABLET PO SCH (09:23)
[2017-05-20] MEDS: Vitamin B Complex/Vit C/Vit E 1 EACH TABLET PO SCH (09:23)
[2017-05-20] MEDS: *HR* Dabigatran 150 MG CAPSULE PO SCH ×2 (09:23→19:42)
[2017-05-20] MEDS: Furosemide 40 MG TABLET PO SCH (09:24)
[2017-05-20] MEDS: Iron Polysaccharide Complex 150 MG CAPSULE PO SCH (09:26)
[2017-05-20] MEDS: (Linaclotide [Linzess] 290 MCG) PO SCH (09:26)
--- NOTE | 2017-05-20 16:09 | Pulmonology Consult Note ---
Date of Encounter: 05/20/17 Time of Encounter: 15:50 Assessment and Plan (1) Acute respiratory failure with hypoxia Current Visit: Yes Status: Acute This is multifactorial including pneumonia COPD exacerbation and CHF Currently requiring 2 L nasal cannula to keep oxygen saturation in the low 90s which is appropriate for her and really anything above 88% around 92/94% I would encourage incentive spirometry for the patient And ambulation 1 safety do so and cleared from surgical perspective (2) COPD exacerbation Current Visit: No Status: Acute Agree with continuation of oral prednisone this can be tapered over 2 weeks Schedule bronchodilators duo nebs every 4-6 hours (with every 2 hours albuterol as needed) If patient can bring in her home Advair for continuation of use that would be helpful otherwise schedule Symbicort 160/4.52 puffs twice a day Considering scheduling guaifenesin 600 mg twice a day to help with sputum expectoration She will need outpatient pulmonary follow-up (3) (HFpEF) heart failure with preserved ejection fraction Current Visit: Yes Status: Acute Patient name remains persistently short of breath with elevated BNP and troponin on admission. Recent cardiac stress test was negative for cardiac ischemia and at that time she also had a preserved ejection fraction. She has long-standing hypertension and in general does the for typical patient (elderly woman long-standing hypertension and (for heart failure. Ejection fraction. Where think this is particularly important is that I feel that she is volume overloaded on exam today and as such with increased interstitial edema this could lead to "cardiac asthma" and could also be one of the reasons that she has had persistent wheezing in addition to exacerbation of underlying lung disease. Aim for a net -0.5-1 L over the next 24-48 hours Defer monitoring of electrolytes and renal function to primary medicine service Heart rate control and blood pressure control are crucial (4) Pneumonia Current Visit: Yes Status: Acute Agree with continuation of antimicrobials to complete a seven-day course clinically I feel like this is improving She will need repeat CT scan in 4-6 weeks to demonstrate resolution of infiltrate Qualifiers: Pneumonia type: due to unspecified organism Laterality: bilateral Lung location: unspecified part of lung Qualified Code(s): J18.9 - Pneumonia, unspecified organism (5) CHRISTIANO (obstructive sleep apnea) Current Visit: Yes Status: Acute Start AutoPap nightly 4-12 with oxygen bleed to keep saturation around 92% I discussed this with the respiratory therapist History of Present Illness Consult date: 05/20/17 Requesting physician: Marcia Madrid Reason for consult: COPD Chief complaint: Wheezing History of present illness: This is a very pleasant 86-year-old woman with past medical history of COPD who is admitted for pneumonia on the . She recently had left total knee arthroplasty done in outside facility in a couple days after that had developed shortness of breath and cough. On admission to the ED CTA was performed negative for filling defect but notable for pneumonia she has been treated for pneumonia and COPD exacerbation since admission however she continues to have significant shortness of breath and wheezing and thus pulmonary was consulted for further evaluation and recommendations I spoke with patient today she was in the middle of a nebulizer treatment but it appeared to be in good spirits said she was somewhat short of breath but felt like she is getting better and that her only complaint was that she was unable to cough effectively. Her pulmonary history is notable for COPD follows in the pulmonary clinic although I do not have any PFTs done recently to evaluate. She is maintained fairly well on twice daily dosing of Advair discus. She also has a history of obstructive sleep apnea and found benefit from the CPAP machine however it was taken from her for what appears to be inability of document compliance. In the past she tells me that she has used oxygen but was not wearing it at the time that she was admitted to the hospital and said she did not need it anymore. Is unclear to me the etiology of her COPD as she is a lifelong nonsmoker others she did have some exposure to passive tobacco smoke. No significant environmental or industrial exposures. Of note she also suffers from CHF and atrial fibrillation. Past Med Surg Social Fam HX - Past Medical History Medical history: atrial fibrillation, cancer, COPD, CVA, hypertension, myocardial infarction Psychiatric history: no psych history - Past Surgical History Surgical History: hysterectomy - Social History Smoking Status: Never smoker Smokeless Tobacco Status: No Alcohol use: none Drug use: none - Family History Sister Hx Family Cancer: Yes (Breast) Brother Hx Family Cancer: Yes (Bladder) Mother Hx Family Cardiac Disorders: Yes ([place]) Hx Family Respiratory Disorders: No Hx Family Cancer: No Hx Family GI Disorders: No Hx Family Genitourinary Disorders: No Hx Family Endocrine Disorder: No Hx Family Musculoskeletal Disorders: No Hx Family Neuromuscular Disorders: No Hx Family Neurologic Disorders: Yes (Stroke) Hx Family HEENT Disorders: No Hx Family Autoimmune Disorders: No Hx Family Reproductive Disorders: No Hx Family Psychosocial Disorders: No Hx Family Medical Disorders: No Father Age at : 69 Cause of : CVA Hx Family Cardiac Disorders: Yes ([place]) Hx Family Endocrine Disorder: Yes (DM) Hx Family Neurologic Disorders: Yes (Stroke) Medications and Allergies Albuterol Sulfate [Ventolin Hfa] 2 puff IH Q4H PRN 05/17/17 [History] Aspirin [Lo-Dose Aspirin EC] 81 mg PO DAILY 05/17/17 [History] Dabigatran [Pradaxa] 150 mg PO BID 05/17/17 [History] Diltiazem HCl [Diltiazem 24Hr Cd] 240 mg PO DAILY 05/17/17 [History] Ferrous Sulfate [Iron] 325 mg PO DAILY 05/17/17 [History] Fluticasone/Salmeterol [Advair 500-50 Diskus] 1 puff IH BID 05/17/17 [History] Furosemide [Lasix] 40 mg PO DAILY 05/17/17 [History] HYDROcodone/Acet 5/325 mg [[place] 5-325 mg] 1 tab PO Q4-6H PRN 05/17/17 [History] Losartan Potassium [Cozaar] 50 mg PO DAILY 05/17/17 [History] Metoprolol [Lopressor] 25 mg PO BID 05/17/17 [History] Montelukast [Singulair] 10 mg PO HS 05/17/17 [History] Potassium Chloride [Klor-Con 10] 10 meq PO BID 05/17/17 [History] Sertraline [Zoloft] 100 mg PO DAILY 05/17/17 [History] Vit C/E/Zn/Coppr/Lutein/Zeaxan [Preservision Areds 2 Softgel] 1 cap PO BID 05/17 [History] 3 Allergy/AdvReac Type Severity Reaction Status Date / Time acetaminophen [From Percocet] Allergy Confusion Verified 09/02/16 13:59 gabapentin [From Neurontin] Allergy See Verified 02/14/15 00:55 Comments Oxycodone [From Percocet] Allergy Confusion Verified 09/02/16 13:59 Sulfa (Sulfonamide Allergy Itching Verified 02/14/15 00:55 Antibiotics) All Systems: The remainder of the systems were reviewed and are negative Physical Examination Vital Signs: Vital Signs, Last 4 Hours Temp Pulse Resp BP Pulse Ox 05/20/17 15:40 98.2 F 76 18 133/68 92 General appearance: no acute distress Eyes: nonicteric ENT: oropharynx moist Neck: supple Effort: mildly labored Auscultation: bilateral: wheezes (Noted expiratory wheezing with prolonged expiratory phase), rales Cardiovascular: irregular rhythm Gastrointestinal: normoactive bowel sounds, non-tender Extremities: pulses normal, other (Left surgical knee scar noted which appears to be healing appropriately she has diffuse ecchymotic changes from mid thigh to the lower tibia) Musculoskeletal: other (Left knee swollen) normal mental status, non-focal exam mood appropriate Results - Laboratory Findings CBC and BMP: 05/20/17 04:45 05/20/17 04:45 PT/INR, D-dimer PT 16.0 Seconds (9.4-12.1) H 05/17/17 05:20 Abnormal lab findings: Abnormal lab results RBC 2.81 M/mcL (3.82-4.97) L 05/20/17 04:45 Hgb 7.8 g/dL (11.5-15.4) L 05/20/17 04:45 Hct 25.0 % (35.3-44.9) L 05/20/17 04:45 MCH 27.8 pg (28.0-33.3) L 05/20/17 04:45 MCHC 31.2 g/dL (31.6-35.5) L 05/20/17 04:45 Anisocytosis 1+ (Not Present) A 05/18/17 04:50 PT 16.0 Seconds (9.4-12.1) H 05/17/17 05:20 APTT 45.9 Seconds (26.0-36.0) H 05/17/17 05:20 BUN 28 mg/dL (8-23) H 05/20/17 04:45 BUN/Creatinine Ratio 34 (6-26) H 05/20/17 04:45 Iron 25 mcg/dL (50-170) L 05/18/17 07:55 % Saturation 9 % (15-50) L 05/18/17 07:55 Transferrin 191 mg/dL (203-362) L 05/18/17 07:55 Troponin I 0.10 ng/mL (< 0.04) H* 05/17/17 05:20 B-Natriuretic Peptide 611 pg/mL (Less than 100) H 05/16/17 16:20 Folate 18.3 ng/mL (3.0-16.0) H 05/18/17 07:55 Stool Occult Blood Positive (Negative) A 05/18/17 10:15 - Microbiology Findings Microbiology Findings: Microbiology, Last 48 Hours 05/17/17 11:00 Sputum Culture - Preliminary Sputum Yeast Species - Diagnostic Findings Chest x-ray: report reviewed, image reviewed CT scan - chest: report reviewed, image reviewed - Clinical Findings Intake & Output: Intake & Output 05/19/17 05/20/17 05/20/17 23:59 07:59 15:59 Intake Total 510 / 510 120 / 120 Output Total 150 / 150 Balance 510 / 510 -130 / -130 120 / 120 Weight 76.929 kg Consult Discharge Plan - Plan Referrals: Glenis Kirk MD [Primary Care Provider] -
--- NOTE | 2017-05-20 18:06 | Internal Med Progress Note ---
Date of Encounter: 05/20/17 Time of Encounter: 18:04 - Assessment and plan (1) Anemia Current Visit: Yes Status: Acute Assessment and plan: Continue iron supplement Trend hemoglobin and hematocrit Stool for occult blood was positive the patient had constipated stools Spoke to the patient regarding today's drop in hemoglobin, heme positive stools , and a colonoscopy. She agreed to discuss with the dialysis technician Qualifiers: Anemia type: iron deficiency Iron deficiency anemia type: unspecified iron deficiency Qualified Code(s): D50.9 - Iron deficiency anemia, unspecified (2) Atrial fibrillation Current Visit: Yes Status: Chronic Assessment and plan: Paroxysmal atrial fibrillation. Patient converted to a sinus rhythm in the 70s and 80s overnight. She had been in atrial fibrillation rate in the 120s yesterday. Qualifiers: Atrial fibrillation type: paroxysmal Qualified Code(s): I48.0 - Paroxysmal atrial fibrillation (3) COPD exacerbation Current Visit: Yes Status: Acute Assessment and plan: Pulmonary consult and would like to follow-up in the office Exacerbation secondary to pneumonia and CHF. Patient continues to wheeze with some scattered rhonchi and a harsh cough on forced expiration Duo nebs every 4 hours with albuterol every 2 hours when necessary for wheezing Advair from home or Symbicort 160/4.5 with 2 puffs twice a day Mucinex 600 twice a day Incentive spirometry O2 to maintain sats greater than 92% Continue antibiotics Continue prednisone 40 daily, taper over 2 weeks per pulmonary (4) Elevated troponin Current Visit: Yes Status: Acute Assessment and plan: Flat and adynamic elevation declining in the setting of pneumonia, CHF, anemia, and COPD exacerbation. Likely demand ischemia No chest pain Continue cardiac monitoring now in a sinus rhythm but intermittent atrial fib likely PAF (5) HCAP (healthcare-associated pneumonia) Current Visit: Yes Status: Acute Assessment and plan: Patient was recently hospitalized at [facility] for left knee surgery. She is being treated for HCAP with cefepime and vancomycin to complete a [address] scan in 4-6 weeks to demonstrate resolution of the infiltrate. Sputum culture is positive for moderate yeast Blood cultures preliminary no growth O2 currently at 2 L to maintain sats greater than 92% (6) Hypertension Current Visit: No Status: Chronic Assessment and plan: Blood pressure stable Qualifiers: Hypertension type: essential hypertension Qualified Code(s): I10 - Essential (primary) hypertension (7) DVT prophylaxis Current Visit: Yes Status: Acute Assessment and plan: Continue CAROLEE huddleston (8) CHF exacerbation Current Visit: Yes Status: Acute Assessment and plan: Elevated BNP and troponin on admission. Recent cardiac stress test was negative for cardiac ischemia and at that time she had a preserved ejection fraction. Increased interstitial edema contributing to shortness of breath and wheezing Pulmonary would like to aim for and that weight loss of 0.5-1 L over the next 24 -48 hours Monitor electrolytes and renal function closely Blood pressure and heart rate control Qualifiers: Heart failure type: unspecified Qualified Code(s): I50.9 - Heart failure, unspecified (9) CHRISTIANO (obstructive sleep apnea) Current Visit: Yes Status: Acute Assessment and plan: Pulmonary spoke with respiratory illness start AutoPap nightly 4-12 with oxygen bleed to keep saturations around 92%. - Subjective Interval history: Patient denies fever, chills, chest pain, abdominal pain. but still feels a little weak and dyspneic on exertion. She had a good bowel movement overnight. - Constitutional Vitals: Temp Pulse Resp BP Pulse Ox 98.2 F 76 18 133/68 92 05/20/17 15:40 05/20/17 15:40 05/20/17 15:40 05/20/17 15:40 05/20/17 15:40 General appearance: Present: cooperative, A&O X 3, pleasant, answers questions appropriately - Head Head exam: Present: atraumatic, normocephalic - Eye Eye exam: Present: PERRL, conjuntiva pink, sclera anicteric Pupils: Present: PERRL - Neck Neck exam general surgery: Present: supple, trachea midline. Absent: lymphadenopathy - Respiratory Respiratory exam: Present: decreased breath sounds, prolonged expiratory phase, wheezes. Absent: accessory muscle use, rales, rhonchi - Cardiovascular Cardiovascular exam: Present: irregular rhythm, +S1, +S2. Absent: diastolic murmur, gallop, rubs, systolic murmur - GI/Abdominal GI/Abdominal exam: Present: normal bowel sounds, soft, no peritoneal signs. Absent: distended, tenderness - Extremities Exam Extremities exam: Present: joint swelling, pedal edema, warm, radial pulses palpable and symmetrical. Absent: calf tenderness, cyanotic Additional comments: Patient with recent left knee replacement with swelling, incision is well approximated with no drainage. Left lower extremity is edematous with ecchymosis and tenderness to touch. Slight edema to the right lower extremity. - Neurological Exam Neurological exam: Present: CN II-XII intact, oriented X3, no focal deficits. Absent: pronater drift, facial droop, speech deficit - Skin Skin exam: Present: dry, warm Internal Medicine: Result - Labs CBC & Chem 7: 05/20/17 04:45 05/20/17 04:45 Labs: Short CBC 05/20/17 Range/Units 04:45 WBC 7.5 (4.3-11.1) K/mcL Hgb 7.8 L (11.5-15.4) g/dL Hct 25.0 L (35.3-44.9) % Plt Count 256 (140-400) K/mcL BMP 05/20/17 04:45 Sodium 140 Potassium 3.5 Chloride 106 Carbon Dioxide 27 BUN 28 H Creatinine 0.83 Glucose 95 Calcium 8.8 - ABG Interpretation ABG results: PT/INR, D-dimer PT 16.0 Seconds (9.4-12.1) H 05/17/17 05:20 - VTE Documentation of Mechanical Device: Graduated compression elastic hosiery Consult Discharge Plan - Plan Referrals: Glenis Kirk MD [Primary Care Provider] -
[2017-05-20] MEDS ORDERED: Albuterol 2.5 MG/3 ML NEBULIZER IH PRN (18:24)
--- NOTE | 2017-05-20 18:58 | Electrocardiograph Report ---
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
[2017-05-20] MEDS: Furosemide 40 MG/4 ML VIAL IVP SCH (19:43)
[2017-05-20] MEDS: Lactulose Oral Soln 20 GM/30 ML UDC PO SCH (19:43)
[2017-05-20] MEDS: Budesonide/Formoterol 160/4.5 MDI IH SCH (20:05)
[2017-05-20 22:59] LABS: Adenovirus Not Detected (Not Detect); Bordetella Pertussis Not Detected (Not Detect); Chlamydophila pneumoniae Not Detected (Not Detect); Coronavirus 229E Not Detected (Not Detect); Coronavirus HKU1 Not Detected (Not Detect); Coronavirus NL63 Not Detected (Not Detect); Coronavirus OC43 Not Detected (Not Detect); Human Metapneumovirus ***DETECTED*** (Not Detect); Human Rhinovirus/Enterovirus Not Detected (Not Detect); Influenza A Subtype 2009 H1 Not Detected (Not Detect); Influenza A Untypeable Not Detected (Not Detect); Influenza B Not Detected (Not Detect); Mycoplasma pneumoniae Not Detected (Not Detect); Parainfluenza Virus 1 Not Detected (Not Detect); Parainfluenza Virus 2 Not Detected (Not Detect); Parainfluenza Virus 3 Not Detected (Not Detect); Parainfluenza Virus 4 Not Detected (Not Detect); Respiratory Syncytial Virus Not Detected (Not Detect)
[2017-05-21] MEDS: Cefepime HCl 2,000 MG in Water for inj. (sterile) 20 ML 20 ML IVP SCH ×3 (01:27→18:27)
[2017-05-21] MEDS: Ipratropium/Albuterol Neb 3 ML IH SCH ×6 (03:42→23:15)
[2017-05-21 06:49] LABS: Hematocrit 26.1 % (35.3-44.9); Hemoglobin 8.3 g/dL (11.5-15.4); Mean Corpuscular HGB Conc 31.8 g/dL (31.6-35.5); Mean Corpuscular Hemoglobin 27.8 pg (28.0-33.3); Mean Corpuscular Volume 87.3 fL (83.0-100.0); Mean Platelet Volume 9.3 fL (9.4-12.4); Nucleated Red Blood Cells 0.6 /100 WBC (0); Platelet Count 319 K/mcL (140-400); Red Blood Count 2.99 M/mcL (3.82-4.97); Red Cell Distribution Width 13.9 % (11.5-14.5)
[2017-05-21 07:20] LABS: Calcium 9.2 mg/dL (8.6-10.3); Potassium 3.5 mEq/L (3.5-5.1)
[2017-05-21] MEDS: Budesonide/Formoterol 160/4.5 MDI IH SCH ×2 (07:44→19:48)
[2017-05-21 07:54] LABS: Monocytes # 0.4 K/mcL (0.0-1.3)
[2017-05-21 07:55] LABS: Platelet Estimate Normal (Normal); Toxic Granulation Present (Not Present)
[2017-05-21] MEDS: Furosemide 40 MG/4 ML VIAL IVP SCH ×2 (10:06→18:27)
[2017-05-21] MEDS: Iron Polysaccharide Complex 150 MG CAPSULE PO SCH (10:09)
[2017-05-21] MEDS: Diltiazem CD (24hr) 240 MG CAPSULE PO SCH (10:09)
[2017-05-21] MEDS: Aspirin Enteric Coated 81 MG Tablet PO SCH (10:09)
[2017-05-21] MEDS: (Linaclotide [Linzess] 290 MCG) PO SCH (10:12)
[2017-05-21] MEDS: *HR* Dabigatran 150 MG CAPSULE PO SCH ×2 (10:12→20:45)
[2017-05-21] MEDS: predniSONE 20 MG TABLET PO SCH (10:12)
[2017-05-21] MEDS: Vitamin B Complex/Vit C/Vit E 1 EACH TABLET PO SCH (10:12)
--- NOTE | 2017-05-21 11:17 | Internal Med Progress Note ---
Date of Encounter: 05/21/17 Time of Encounter: 11:15 - Assessment and plan (1) Anemia Current Visit: Yes Status: Acute Assessment and plan: Continue iron supplement Trend hemoglobin and hematocrit Stool for occult blood was positive the patient had constipated stools Spoke to the patient regarding today's drop in hemoglobin, heme positive stools , and a colonoscopy. She agreed to discuss with the frontend engineer. Hemoglobin improved today after Lasix dosing Qualifiers: Anemia type: iron deficiency Iron deficiency anemia type: unspecified iron deficiency Qualified Code(s): D50.9 - Iron deficiency anemia, unspecified (2) Atrial fibrillation Current Visit: Yes Status: Chronic Assessment and plan: Paroxysmal atrial fibrillation. Patient converted to a sinus rhythm in the 70s and 80s overnight. She had been in atrial fibrillation rate in the 120s . Qualifiers: Atrial fibrillation type: paroxysmal Qualified Code(s): I48.0 - Paroxysmal atrial fibrillation (3) COPD exacerbation Current Visit: Yes Status: Acute Assessment and plan: Pulmonary consult and would like to follow-up in the office Exacerbation secondary to pneumonia and CHF. Respiratory infectious panel positive for human metapneumovir PCR Patient continues to wheeze with some scattered rhonchi and a harsh cough on forced expiration but is slightly improved today after additional Lasix given Duo nebs every 4 hours with albuterol every 2 hours when necessary for wheezing Symbicort 160/4.5 with 2 puffs twice a day Mucinex 600 twice a day Incentive spirometry O2 to maintain sats greater than 92% Continue antibiotics Continue prednisone 40 mg daily, taper over 2 weeks per pulmonary (4) Elevated troponin Current Visit: Yes Status: Acute Assessment and plan: Flat and adynamic elevation declining in the setting of pneumonia, CHF, anemia, and COPD exacerbation. Likely demand ischemia No chest pain Continue cardiac monitoring , now in a sinus rhythm but intermittent atrial fib likely PAF (5) HCAP (healthcare-associated pneumonia) Current Visit: Yes Status: Acute Assessment and plan: Patient was recently hospitalized at [facility] for left total knee replacement. She is being treated for HCAP with cefepime and vancomycin to complete a [address] scan in 4-6 weeks to demonstrate resolution of the infiltrate. Sputum culture is positive for moderate yeast Blood cultures preliminary no growth O2 currently at 2 L to maintain sats greater than 92% Respiratory infection panel positive for human metapneumovir (6) Hypertension Current Visit: No Status: Chronic Assessment and plan: Blood pressure is stable Qualifiers: Hypertension type: essential hypertension Qualified Code(s): I10 - Essential (primary) hypertension (7) DVT prophylaxis Current Visit: Yes Status: Acute Assessment and plan: CAROLEE huddleston (8) CHF exacerbation Current Visit: Yes Status: Acute Assessment and plan: Elevated BNP and troponin on admission. Recent cardiac stress test was negative for cardiac ischemia and at that time she had a preserved ejection fraction. Increased interstitial edema contributing to shortness of breath and wheezing Pulmonary would like to aim for weight loss of 0.5-1 L over the next 24-48 hours Monitor electrolytes and renal function closely Blood pressure and heart rate controlled Qualifiers: Heart failure type: unspecified Qualified Code(s): I50.9 - Heart failure, unspecified (9) CHRISTIANO (obstructive sleep apnea) Current Visit: Yes Status: Acute Assessment and plan: Pulmonary spoke with respiratory, AutoPap nightly 4-12 with oxygen bleed to keep saturations around 92%. - Subjective Interval history: Patient denies fever, chills, chest pain, abdominal pain. She states her breathing is improved today. She states she urinated quite a bit after the IV Lasix. She remains on 2 L nasal cannula at this time. She also utilized to AutoPap 3-4 hours last night she stated it was very noisy and she had trouble sleeping around the sound in her ears. - Constitutional Vitals: Temp Pulse Resp BP Pulse Ox 98.8 F 72 18 130/73 100 05/21/17 10:58 05/21/17 10:58 05/21/17 10:58 05/21/17 10:58 05/21/17 10:58 General appearance: Present: cooperative, A&O X 3, pleasant, answers questions appropriately - Head Head exam: Present: atraumatic, normocephalic - Eye Eye exam: Present: PERRL, conjuntiva pink, sclera anicteric Pupils: Present: PERRL - Neck Neck exam general surgery: Present: supple, trachea midline. Absent: lymphadenopathy - Respiratory Respiratory exam: Present: decreased breath sounds, prolonged expiratory phase, wheezes. Absent: accessory muscle use, rales, rhonchi - Cardiovascular Cardiovascular exam: Present: irregular rhythm, +S1, +S2. Absent: diastolic murmur, gallop, rubs, systolic murmur - GI/Abdominal GI/Abdominal exam: Present: normal bowel sounds, soft, no peritoneal signs. Absent: distended, tenderness - Extremities Exam Extremities exam: Present: pedal edema, warm, radial pulses palpable and symmetrical. Absent: calf tenderness, cyanotic Additional comments: Postoperative edema of the left lower extremity from the knee down. The knee incision is approximated with no drainage noted. Ecchymosis to the left lower extremity, Doppler negative for DVT - Neurological Exam Neurological exam: Present: alert, CN II-XII intact, oriented X3, no focal deficits. Absent: pronater drift, facial droop, speech deficit - Skin Skin exam: Present: dry, intact, normal color, warm Internal Medicine: Result - Labs CBC & Chem 7: 05/21/17 06:21 05/21/17 06:21 Labs: Short CBC 05/21/17 Range/Units 06:21 WBC 10.0 (4.3-11.1) K/mcL Hgb 8.3 L (11.5-15.4) g/dL Hct 26.1 L (35.3-44.9) % Plt Count 319 (140-400) K/mcL Neutrophils # 7.0 (1.6-8.9) K/mcL BMP 05/21/17 06:21 Sodium 139 Potassium 3.5 Chloride 100 Carbon Dioxide 30 H BUN 31 H Creatinine 1.06 Glucose 89 Calcium 9.2 - ABG Interpretation ABG results: PT/INR, D-dimer PT 16.0 Seconds (9.4-12.1) H 05/17/17 05:20 - VTE Documentation of Mechanical Device: Graduated compression elastic hosiery Consult Discharge Plan - Plan Referrals: Glenis Kirk MD [Primary Care Provider] - 05/22/17 8:30 am
--- NOTE | 2017-05-21 12:38 | Gastroenterology Consult Note ---
<Remedios Bach - Last Filed: 05/21/17 12:43> Date of Encounter: 05/21/17 Time of Encounter: 10:00 - Assessment and plan (1) Anemia Current Visit: Yes Status: Acute Assessment and plan: Labs reviewed and pt has long standing anemia. She denies any bright red bleeding. She had one dark BM but states she was recently started on iron supplements. Discussed with pt that she needs EGD/colonoscopy to workup the anemia. She refuses at this time as she states she just had knee surgery, recent hip fracture and other medical problems. Monitor H&H, will check iron studies and ferritin. If anemia worsens or she develops acute bleeding she will need endoscopy. She is on pradaxa which will need held x 3-5 days before non- emergent procedures. Will follow as an outpatient. Qualifiers: Anemia type: iron deficiency Iron deficiency anemia type: unspecified iron deficiency Qualified Code(s): D50.9 - Iron deficiency anemia, unspecified - Time Spent With Patient Total time spent is greater than 50% in coordination of care (as documented) at patient's floor/unit and/or counseling patient: GI History of Present Illness - Data of Consult Patient: new to practice Consult date: 05/21/17 Requesting Physician: Jenifer Morgan CNP - Consult Narrative Reason for consult: anemia History of present illness: Ms. Ho is a 86 year old female with PMH of A. fib, hypertension, COPD, previous [place], and CVA. She presented in the emergency department with chief complaint of dyspnea and wheezing. She denies syncope, chest pain, abdominal pain, dysuria, or hematuria. She was recently at [facility] for a right total knee replacement, and was discharged 4 days ago. She reports no problems with the surgery, and that her knee is doing well, but since discharge she has been having worsening shortness of breath and wheezing, fatigue, fever, chills, headache, lightheadedness, chest congestion, productive cough, and nausea. Symptoms are worse with exertion. She does admit to some orthopnea, however her lower extremity edema is unchanged. She does report one dark BM the day of admission but has been on iron supplements since discharge from [facility]. She denies any bright red rectal bleeding, she reports mild GERD and nausea with out vomiting. She has occasional constipation for which she takes miralax with relief. She is on pradaxa for A-fib. Hgb was 7.9 on admission, now 8.3, INR 1.5, troponin was 0.19 on admission, stool positive for occult blood. Colonoscopy: ~ 10 years ago EGD: ~ 10 years ago NSAIDS/ASA: asa 81 mg Anticoagulants: pradaxa Past Med Surg Social Fam HX - Past Medical History Medical history: atrial fibrillation, cancer, COPD, CVA, hypertension, myocardial infarction Psychiatric history: no psych history - Past Surgical History Surgical History: hysterectomy - Social History Smoking Status: Never smoker Smokeless Tobacco Status: No Alcohol use: none Drug use: none - Family History Sister Hx Family Cancer: Yes (Breast) Brother Hx Family Cancer: Yes (Bladder) Mother Hx Family Cardiac Disorders: Yes ([place]) Hx Family Respiratory Disorders: No Hx Family Cancer: No Hx Family GI Disorders: No Hx Family Genitourinary Disorders: No Hx Family Endocrine Disorder: No Hx Family Musculoskeletal Disorders: No Hx Family Neuromuscular Disorders: No Hx Family Neurologic Disorders: Yes (Stroke) Hx Family HEENT Disorders: No Hx Family Autoimmune Disorders: No Hx Family Reproductive Disorders: No Hx Family Psychosocial Disorders: No Hx Family Medical Disorders: No Father Age at : 69 Cause of : CVA Hx Family Cardiac Disorders: Yes ([place]) Hx Family Endocrine Disorder: Yes (DM) Hx Family Neurologic Disorders: Yes (Stroke) Review of Systems: GI: as per [place] GENERAL: fever, has some chills EYES: denies yellow discoloration ENT: denies pain with swallowing or difficulty swallowing CARDIO: denies chest pain, palpitations RESP: increased Shortness of breath with exertion : denies change in color of urine NEURO: any weakness HEME: Denies any bruising MS: chronic joint pain. DERM: denies rash or itching PSYCH: Denies history of anxiety or depression - Constitutional Vitals: Temp Pulse Resp BP Pulse Ox 98.8 F 72 18 130/73 100 05/21/17 10:58 05/21/17 10:58 05/21/17 10:58 05/21/17 10:58 05/21/17 10:58 Exam: CONSTITUTIONAL:~alert, no acute distress.~HEAD:~normocephalic.~EYES:~no jaundice.~NECK:~no obvious swelling.~HEART:~irregular rate and rhythm, no murmurs.~LUNGS:~bilateral fair air entry.~ABDOMEN:~non distended, soft, diffusely tender, no masses palpable, no organomegaly.~RECTAL EXAM:~Deferred.~ EXTREMITIES:~no clubbing or cyanosis, trace BLE edema, splint to RLE.~SKIN:~no stigmata of chronic liver disease, pallor noted.~NEUROLOGIC:~no obvious focal defect.~~~~ Results - Labs CBC & Chem 7: 05/21/17 06:21 05/21/17 06:21 Labs: Last Result Calcium 9.2 mg/dL (8.6-10.3) 05/21/17 06:21 Iron 46 mcg/dL (50-170) L 05/21/17 06:21 % Saturation 15 % (15-50) 05/21/17 06:21 Transferrin 215 mg/dL (203-362) 05/21/17 06:21 Ferritin 187 ng/ml (10-120) H 05/21/17 06:21 Troponin I 0.10 ng/mL (< 0.04) H* 05/17/17 05:20 Vitamin B12 525 pg/mL (250-1100) 05/18/17 07:55 Folate 18.3 ng/mL (3.0-16.0) H 05/18/17 07:55 Stool Occult Blood Positive (Negative) A 05/18/17 10:15 Entire Visit Hgb 8.3 g/dL (11.5-15.4) L 05/21/17 06:21 Hct 26.1 % (35.3-44.9) L 05/21/17 06:21 PT 16.0 Seconds (9.4-12.1) H 05/17/17 05:20 Ferritin 187 ng/ml (10-120) H 05/21/17 06:21 Folate 18.3 ng/mL (3.0-16.0) H 05/18/17 07:55 - ABG ABG results: PT/INR, D-dimer PT 16.0 Seconds (9.4-12.1) H 05/17/17 05:20 - Impressions Impressions Echocardiogram 05/21/17 18:26 Impressions: LVEF 65%. Normal LV chamber size, wall thickness and function. Mild left ventricular diastolic dysfunction. Normal right ventricular structure and function. No evidence of pulmonary hypertension. No significant valvular dysfunction. Left Ventricular Wall Motion: Rest Echo Findings All wall segments showed normal motion. Findings: Study Quality * Technically adequate exam. ECG Findings * Normal sinus rhythm. Left Ventricle * LVEF 65%. * Normal LV chamber size, wall thickness and function. * Mild left ventricular diastolic dysfunction. Right Ventricle * Normal right ventricular structure and function. Left Atrium * Moderate to severely dilated left atrium. Right Atrium * Mild to moderately dilated right atrium. Interatrial Septum * Interatrial septum not well evaluated. Aortic Valve * Trileaflet aortic valve. * Mildly sclerotic aortic valve leaflets. * No aortic regurgitation. * No aortic stenosis. Mitral Valve * Mild mitral annular calcification * No mitral stenosis. * No mitral regurgitation. Tricuspid Valve * Normal tricuspid valve structure and function. * Trace tricuspid regurgitation. * No evidence of pulmonary hypertension. Pulmonic Valve * Normal pulmonic valve structure and function. * No pulmonic regurgitation. Aorta * Normally sized aortic root. Pericardium * The pericardium appears normal. IVC * Normal IVC dimensions and inspiratory collapse. Pulmonary Artery * Normal visualized portions of the main pulmonary artery. Consult Discharge Plan - Plan Referrals: Glenis Kirk MD [Primary Care Provider] - 05/22/17 8:30 am <Doug Haq - Last Filed: 05/21/17 19:06> Date of Encounter: 05/21/17 Time of Encounter: 17:50 - Time Spent With Patient Total time spent is greater than 50% in coordination of care (as documented) at patient's floor/unit and/or counseling patient: GI History of Present Illness - Data of Consult Requesting Physician: Jenifer Morgan CNP - Consult Narrative History of present illness: Ms. Ho is a 86 year old female - Constitutional Vitals: Temp Pulse Resp BP Pulse Ox 98.1 F 68 18 112/67 94 05/21/17 15:04 05/21/17 15:04 05/21/17 15:53 05/21/17 15:04 05/21/17 15:53 Results - Labs CBC & Chem 7: 05/21/17 06:21 05/21/17 06:21 Labs: Last Result Calcium 9.2 mg/dL (8.6-10.3) 05/21/17 06:21 Iron 46 mcg/dL (50-170) L 05/21/17 06:21 % Saturation 15 % (15-50) 05/21/17 06:21 Transferrin 215 mg/dL (203-362) 05/21/17 06:21 Ferritin 187 ng/ml (10-120) H 05/21/17 06:21 Troponin I 0.10 ng/mL (< 0.04) H* 05/17/17 05:20 Vitamin B12 525 pg/mL (250-1100) 05/18/17 07:55 Folate 18.3 ng/mL (3.0-16.0) H 05/18/17 07:55 Stool Occult Blood Positive (Negative) A 05/18/17 10:15 Entire Visit Hgb 8.3 g/dL (11.5-15.4) L 05/21/17 06:21 Hct 26.1 % (35.3-44.9) L 05/21/17 06:21 PT 16.0 Seconds (9.4-12.1) H 05/17/17 05:20 Ferritin 187 ng/ml (10-120) H 05/21/17 06:21 Folate 18.3 ng/mL (3.0-16.0) H 05/18/17 07:55 - ABG ABG results: PT/INR, D-dimer PT 16.0 Seconds (9.4-12.1) H 05/17/17 05:20 - Impressions Impressions Echocardiogram 05/21/17 18:26 Impressions: LVEF 65%. Normal LV chamber size, wall thickness and function. Mild left ventricular diastolic dysfunction. Normal right ventricular structure and function. No evidence of pulmonary hypertension. No significant valvular dysfunction. Left Ventricular Wall Motion: Rest Echo Findings All wall segments showed normal motion. Findings: Study Quality * Technically adequate exam. ECG Findings * Normal sinus rhythm. Left Ventricle * LVEF 65%. * Normal LV chamber size, wall thickness and function. * Mild left ventricular diastolic dysfunction. Right Ventricle * Normal right ventricular structure and function. Left Atrium * Moderate to severely dilated left atrium. Right Atrium * Mild to moderately dilated right atrium. Interatrial Septum * Interatrial septum not well evaluated. Aortic Valve * Trileaflet aortic valve. * Mildly sclerotic aortic valve leaflets. * No aortic regurgitation. * No aortic stenosis. Mitral Valve * Mild mitral annular calcification * No mitral stenosis. * No mitral regurgitation. Tricuspid Valve * Normal tricuspid valve structure and function. * Trace tricuspid regurgitation. * No evidence of pulmonary hypertension. Pulmonic Valve * Normal pulmonic valve structure and function. * No pulmonic regurgitation. Aorta * Normally sized aortic root. Pericardium * The pericardium appears normal. IVC * Normal IVC dimensions and inspiratory collapse. Pulmonary Artery * Normal visualized portions of the main pulmonary artery. - Attending Attestation I have personally performed a face to face evaluation on this patient. I have reviewed and agree with the care plan. History and Exam by me shows: Patient with anemia does admit of having some black stool at home. Recommendation: Iron studies including ferritin. EGD tomorrow. Colonoscopy as an outpatient in the next couple of months per patient wishes.
[2017-05-21] MEDS: Acetaminophen 325 MG TABLET PO PRN (18:52)
[2017-05-21] MEDS: Lactulose Oral Soln 20 GM/30 ML UDC PO SCH (20:46)
[2017-05-22] MEDS: Cefepime HCl 2,000 MG in Water for inj. (sterile) 20 ML 20 ML IVP SCH ×2 (03:36→11:11)
[2017-05-22] MEDS: Ipratropium/Albuterol Neb 3 ML IH SCH ×3 (04:20→11:31)
[2017-05-22 06:37] LABS: Hematocrit 26.3 % (35.3-44.9); Hemoglobin 8.7 g/dL (11.5-15.4); Mean Corpuscular HGB Conc 33.1 g/dL (31.6-35.5); Mean Corpuscular Hemoglobin 28.7 pg (28.0-33.3); Mean Corpuscular Volume 86.8 fL (83.0-100.0); Mean Platelet Volume 9.4 fL (9.4-12.4); Platelet Count 304 K/mcL (140-400); Red Blood Count 3.03 M/mcL (3.82-4.97); Red Cell Distribution Width 14.1 % (11.5-14.5)
[2017-05-22 06:50] LABS: Calcium 9.2 mg/dL (8.6-10.3); Potassium 3.6 mEq/L (3.5-5.1)
[2017-05-22] MEDS: Budesonide/Formoterol 160/4.5 MDI IH SCH (07:45)
[2017-05-22] MEDS: Furosemide 40 MG/4 ML VIAL IVP SCH (08:43)
[2017-05-22] MEDS: Aspirin Enteric Coated 81 MG Tablet PO SCH (08:44)
[2017-05-22] MEDS: *HR* Dabigatran 150 MG CAPSULE PO SCH (08:44)
[2017-05-22] MEDS: Diltiazem CD (24hr) 240 MG CAPSULE PO SCH (08:44)
[2017-05-22] MEDS: predniSONE 20 MG TABLET PO SCH (08:44)
[2017-05-22] MEDS: Iron Polysaccharide Complex 150 MG CAPSULE PO SCH (08:45)
[2017-05-22] MEDS: Vitamin B Complex/Vit C/Vit E 1 EACH TABLET PO SCH (08:45)
[2017-05-22] MEDS: (Linaclotide [Linzess] 290 MCG) PO SCH (08:45)
[2017-05-22 11:40] VITALS: BP 116/60
--- NOTE | 2017-05-22 12:06 | ENT - Consult Note ---
Date of Encounter: 05/22/17 Time of Encounter: 12:03 Assessment and Plan (1) Atrial fibrillation Current Visit: Yes Status: Chronic on Pradaxa Qualifiers: Atrial fibrillation type: paroxysmal Qualified Code(s): I48.0 - Paroxysmal atrial fibrillation (2) COPD exacerbation Current Visit: Yes Status: Acute (3) Anemia Current Visit: Yes Status: Acute ENT asked to eval larynx prior to possible upcoming EGD. May proceed without concern for laryngeal abnormality. Normal laryngeal exam on NPL today. Qualifiers: Anemia type: iron deficiency Iron deficiency anemia type: unspecified iron deficiency Qualified Code(s): D50.9 - Iron deficiency anemia, unspecified (4) Oral candidiasis Current Visit: Yes Status: Acute Oral bhargavi beneath her dentures which is causing her pain. Recommend complete denture cleaning. Recommend nystatin mouthwash tid History of Present Illness Consult date: 05/22/17 Reason for ENT Consult: other (laryngeal evaluation) History of present illness: Pt is a 86 yo female admitted with anemia, SOB, COPD exacerbation, and A fib. She is on Pradaxa. Has had bloody stools recently. ENT is consulted for laryngeal evaluation prior to possible EGD. 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 She is unsure what exactly has been done. Admits to poor phonation time and her voice tires immediately with singing which she likes to do. Her voice is crisp today with few breaks. Admits both solid food and liquid dysphagia as well. She ultimately is able to swallow most foods and denies choking with water specifically. Denies hemoptysis. Past Med Surg Social Fam HX - Past Medical History Medical history: atrial fibrillation, cancer, COPD, CVA, hypertension, myocardial infarction Psychiatric history: no psych history - Past Surgical History Surgical History: hysterectomy - Social History Smoking Status: Never smoker Smokeless Tobacco Status: No Alcohol use: none Drug use: none - Family History Sister Hx Family Cancer: Yes (Breast) Brother Hx Family Cancer: Yes (Bladder) Mother Hx Family Cardiac Disorders: Yes (VT) Hx Family Respiratory Disorders: No Hx Family Cancer: No Hx Family GI Disorders: No Hx Family Genitourinary Disorders: No Hx Family Endocrine Disorder: No Hx Family Musculoskeletal Disorders: No Hx Family Neuromuscular Disorders: No Hx Family Neurologic Disorders: Yes (Stroke) Hx Family HEENT Disorders: No Hx Family Autoimmune Disorders: No Hx Family Reproductive Disorders: No Hx Family Psychosocial Disorders: No Hx Family Medical Disorders: No Father Age at : 69 Cause of : CVA Hx Family Cardiac Disorders: Yes (VT) Hx Family Endocrine Disorder: Yes (DM) Hx Family Neurologic Disorders: Yes (Stroke) Medications and Allergies Albuterol Sulfate [Ventolin Hfa] 2 puff IH Q4H PRN 05/17/17 [History] Aspirin [Lo-Dose Aspirin EC] 81 mg PO DAILY 05/17/17 [History] Dabigatran [Pradaxa] 150 mg PO BID 05/17/17 [History] Diltiazem HCl [Diltiazem 24Hr Cd] 240 mg PO DAILY 05/17/17 [History] Ferrous Sulfate [Iron] 325 mg PO DAILY 05/17/17 [History] Fluticasone/Salmeterol [Advair 500-50 Diskus] 1 puff IH BID 05/17/17 [History] Furosemide [Lasix] 40 mg PO DAILY 05/17/17 [History] HYDROcodone/Acet 5/325 mg [[place] 5-325 mg] 1 tab PO Q4-6H PRN 05/17/17 [History] Losartan Potassium [Cozaar] 50 mg PO DAILY 05/17/17 [History] Metoprolol [Lopressor] 25 mg PO BID 05/17/17 [History] Montelukast [Singulair] 10 mg PO HS 05/17/17 [History] Potassium Chloride [Klor-Con 10] 10 meq PO BID 05/17/17 [History] Sertraline [Zoloft] 100 mg PO DAILY 05/17/17 [History] Vit C/E/Zn/Coppr/Lutein/Zeaxan [Preservision Areds 2 Softgel] 1 cap PO BID 05/17 [History] 3 Allergy/AdvReac Type Severity Reaction Status Date / Time acetaminophen [From Percocet] Allergy Confusion Verified 09/02/16 13:59 gabapentin [From Neurontin] Allergy See Verified 02/14/15 00:55 Comments Oxycodone [From Percocet] Allergy Confusion Verified 09/02/16 13:59 Sulfa (Sulfonamide Allergy Itching Verified 02/14/15 00:55 Antibiotics) ENT - ROS All systems PM: reviewed and no additional remarkable complaints except as stated ENT Exam Initial Vital Signs Temp Pulse Resp BP Pulse Ox 99.5 F 96 20 126/74 94 05/16/17 15:20 05/16/17 15:20 05/16/17 15:20 05/16/17 15:20 05/16/17 15:20 - General physical appearance well developed, well nourished, no distress - Eyes PERRL, normal ocular movement - ENT normal pinna, normal nares, normal mucosa - Neck no masses, no bruits, trachea midline - Respiratory normal expansion, normal respiratory effort (finishing a breathing treatment prior to exam. some loud breath sounds still heard. no stridor. ) - Abdomen Abdomen: no distended - Integumentary no rash, no growths - Neurologic CN 2-12 grossly intact, normal coordination, normal sensation - Musculoskeletal normal gait - Psychiatric oriented to time, oriented to person, oriented to place, speech is normal - Additional Findings Procedure: Flexible laryngoscopy Preop dx: hx of laryngeal procedure Postop dx: same Procedure: a 50/50 mix of Afrin/Lidocaine spray was used to decongest the nares. A fiberoptic scope was passed through the left nares to the POLE PEELING MACHINE OPERATOR HELPER and then directed inferiorly to the larynx. It was then retracted without difficulty. The right nares was inspected as well. Findings: Normal nasal mucosa, no polyps. POLE PEELING MACHINE OPERATOR HELPER clear. Vallecula clear. TVC with FROM, no laryngeal masses, significant scarring or other abnormality. Thin glottal gap with phonation E. Esophageal inlet without abnormality. Airway patent and stable. Exam Initial Vital Signs Temp Pulse Resp BP Pulse Ox 99.5 F 96 20 126/74 94 05/16/17 15:20 05/16/17 15:20 05/16/17 15:20 18 15:20 18 15:20 Results - Labs 05/22/17 06:06 05/22/17 06:06 Abnormal lab results WBC 11.6 K/mcL (4.3-11.1) H 05/22/17 06:06 RBC 3.03 M/mcL (3.82-4.97) L 05/22/17 06:06 Hgb 8.7 g/dL (11.5-15.4) L 05/22/17 06:06 Hct 26.3 % (35.3-44.9) L 05/22/17 06:06 Myelocytes % 6.0 % (0) H 05/21/17 06:21 Nucleated RBCs/100 WBC 0.6 /100 WBC (0) H 05/21/17 06:21 Toxic Granulation Present (Not Present) A 05/21/17 06:21 Anisocytosis 1+ (Not Present) A 05/18/17 04:50 PT 16.0 Seconds (9.4-12.1) H 05/17/17 05:20 APTT 45.9 Seconds (26.0-36.0) H 05/17/17 05:20 Carbon Dioxide 30 mEq/L (23-29) H 05/22/17 06:06 BUN 41 mg/dL (8-23) H 05/22/17 06:06 Creatinine 1.28 mg/dL (0.60-1.20) H 05/22/17 06:06 Est GFR ( Amer) 48 (> 60) L 05/22/17 06:06 Est GFR (Non-Af Amer) 40 (> 60) L 05/22/17 06:06 BUN/Creatinine Ratio 32 (6-26) H 05/22/17 06:06 Iron 46 mcg/dL (50-170) L 05/21/17 06:21 Ferritin 187 ng/ml (10-120) H 05/21/17 06:21 Troponin I 0.10 ng/mL (< 0.04) H* 05/17/17 05:20 B-Natriuretic Peptide 611 pg/mL (Less than 100) H 05/16/17 16:20 Folate 18.3 ng/mL (3.0-16.0) H 05/18/17 07:55 Stool Occult Blood Positive (Negative) A 05/18/17 10:15 Vancomycin Trough 30.9 mcg/mL (10-20) H* 05/20/17 16:59 Human Metapneumovir PCR DETECTED (Not Detect) A 05/20/17 21:30 Diabetes panel 05/22/17 Range/Units 06:06 Sodium 140 (136-145) mEq/L Potassium 3.6 (3.5-5.1) mEq/L Chloride 102 (98-107) mEq/L Carbon Dioxide 30 H (23-29) mEq/L BUN 41 H (8-23) mg/dL Creatinine 1.28 H (0.60-1.20) mg/dL Glucose 103 (70-105) mg/dL Calcium 9.2 (8.6-10.3) mg/dL Calcium panel 05/22/17 Range/Units 06:06 Calcium 9.2 (8.6-10.3) mg/dL Pituitary panel 05/22/17 Range/Units 06:06 Sodium 140 (136-145) mEq/L Potassium 3.6 (3.5-5.1) mEq/L Chloride 102 (98-107) mEq/L Carbon Dioxide 30 H (23-29) mEq/L BUN 41 H (8-23) mg/dL Creatinine 1.28 H (0.60-1.20) mg/dL Glucose 103 (70-105) mg/dL Calcium 9.2 (8.6-10.3) mg/dL Adrenal panel 05/22/17 Range/Units 06:06 Sodium 140 (136-145) mEq/L Potassium 3.6 (3.5-5.1) mEq/L Chloride 102 (98-107) mEq/L Carbon Dioxide 30 H (23-29) mEq/L BUN 41 H (8-23) mg/dL Creatinine 1.28 H (0.60-1.20) mg/dL Glucose 103 (70-105) mg/dL Calcium 9.2 (8.6-10.3) mg/dL All other labs normal. Consult Discharge Plan - Plan Referrals: Glenis Kirk MD [Primary Care Provider] - 05/22/17 8:30 am
[2017-05-22] MEDS ORDERED: Nystatin SUSP 5 ML UD.LIQ PO SCH ×2 (13:00→14:06)
--- NOTE | 2017-05-22 14:28 | Discharge Summary ---
- NOTES TO OUTPATIENT PROVIDER Notes to Outpatient Provider: will need to f/u with coal mine inspector in about a month for EGD and colonoscopy. Follow up with PCP in one week. Ortho service as previously arranged. Pulmoonary outpatient follow up Date of Encounter: 05/22/17 Time of Encounter: 14:25 - Discharge Diagnosis (1) Anemia Priority: Primary Status: Chronic Qualifiers: Anemia type: iron deficiency Iron deficiency anemia type: unspecified iron deficiency Qualified Code(s): D50.9 - Iron deficiency anemia, unspecified (2) Atrial fibrillation Priority: Primary Status: Chronic Qualifiers: Atrial fibrillation type: paroxysmal Qualified Code(s): I48.0 - Paroxysmal atrial fibrillation (3) COPD exacerbation Priority: Primary Status: Acute (4) Elevated troponin Priority: Primary Status: Resolved (5) HCAP (healthcare-associated pneumonia) Priority: Primary Status: Acute (6) Hypertension Priority: Primary Status: Chronic Qualifiers: Hypertension type: essential hypertension Qualified Code(s): I10 - Essential (primary) hypertension (7) CHF exacerbation Priority: Primary Status: Acute Qualifiers: Heart failure type: diastolic Qualified Code(s): I50.33 - Acute on chronic diastolic (congestive) heart failure (8) CHRISTIANO (obstructive sleep apnea) Priority: Primary Status: Chronic Hospital course: Ms. Ho is a 86 year old female 85-year-old past medical history of atrial fibrillation, hypertension, COPD, previous ID, CAD, CVA and CHF. She was recently discharged from [facility] after a right total knee replacement and had been discharged 3 days before presentation. She is able to ambulate and her pain is controlled with Tylenol. Had home health including nursing and PT OT. Since discharge her symptoms have worsened with orthopnea, shortness of breath, wheezing, productive cough, chest congestion, lightheadedness, headache, fever and chills. She was also found to be anemic with dark stools but she is on iron supplement. One stool was heme tested positive for occult blood. GI has been consult it and will perform a EGD and colonoscopy as an outpatient. 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 He reports a normal laryngeal exam on NPL today. Pulmonology was consulted and were very helpful with recommendations concerning her continued wheezing and shortness of breath. She will follow-up in the outpatient setting and will need worked up for obstructive sleep apnea. She will be discharged on steroids taper and duo nebs. She does have a home nebulizer. She has completed a course of antibiotics here. She will continue her RN supplementation on discharge. She has had constipated stools and will be sent home on MiraLAX and lactulose. Her COPD was exacerbated secondary to pneumonia and CHF. Respiratory infectious panel was positive for human metapneumoir PCR. We will also encourage incentive spirometry at home. She has been on room air. Elevated troponin was flat and adynamic decline in the setting of pneumonia, CHF, anemia and COPD exacerbation likely secondary to demand ischemia as she had no chest pain. She was in a sinus rhythm with intermittent A. fib so likely PAF. She will need a repeat CT scan in 4-6 weeks to demonstrate resolution of the infiltrate, will defer to pulmonary. Sputum culture was positive for moderate yeast. Blood cultures were no growth. ENT was elevated on admission. A recent cardiac stress test was negative for cardiac asemic ischemia and she had a preserved ejection fraction. Echocardiogram was repeated. Report was LVEF 65%, normal LV chamber size wall thickness and function. Mild left ventricular diastolic dysfunction. Normal right ventricular structure and function. No evidence of pulmonary hypertension and no significant valvular dysfunction with all wall segments showing normal motion. She will resume her Advair on discharge and will continue Mucinex twice a day. Patient sounds much better today. She is a little reluctant to be discharged. I advised her to have her colonoscopy and EGD done about a month after she is stronger and her lungs have completely recovered from his recent illness. She will need to follow her cardiac diet and daily weights and I's and O's. She should follow-up with her primary care physician as well as pulmonology, gastro, and cardiology. Patient had no obvious bleeding or blood in her stools during this admission. Discharge discussed with: patient, family, nurse, case management - Time Spent with Patient Total time spent providing and/or coordinating discharge services: Less than 30 minutes - Discharge Medications Prescriptions: Ipratropium/Albuterol Neb [Duoneb] 3 ml IH Q6HR #120 inhsol guaiFENesin [Guaifenesin] 400 mg PO BID #20 tablet Lactulose 20 gm PO HS PRN 10 Days #300 ml PRN Reason: Constipation Nystatin [Nystatin Suspension] 500,000 units PO QID #120 ml Polyethylene Glycol 3350 [MiraLAX] 17 gm PO DAILY #30 powd.pack predniSONE [PredniSONE] 10 mg PO DAILY #18 tablet Home Medications: Albuterol Sulfate [Ventolin Hfa] 2 puff IH Q4H PRN 05/17/17 [History] Aspirin [Lo-Dose Aspirin EC] 81 mg PO DAILY 05/17/17 [History] Dabigatran [Pradaxa] 150 mg PO BID 05/17/17 [History] Diltiazem HCl [Diltiazem 24Hr Cd] 240 mg PO DAILY 05/17/17 [History] Ferrous Sulfate [Iron] 325 mg PO DAILY 05/17/17 [History] Fluticasone/Salmeterol [Advair 500-50 Diskus] 1 puff IH BID 05/17/17 [History] Furosemide [Lasix] 40 mg PO DAILY 05/17/17 [History] HYDROcodone/Acet 5/325 mg [[place] 5-325 mg] 1 tab PO Q4-6H PRN 05/17/17 [History] Losartan Potassium [Cozaar] 50 mg PO DAILY 05/17/17 [History] Metoprolol [Lopressor] 25 mg PO BID 05/17/17 [History] Montelukast [Singulair] 10 mg PO HS 05/17/17 [History] Potassium Chloride [Klor-Con 10] 10 meq PO BID 05/17/17 [History] Sertraline [Zoloft] 100 mg PO DAILY 05/17/17 [History] Vit C/E/Zn/Coppr/Lutein/Zeaxan [Preservision Areds 2 Softgel] 1 cap PO BID 05/17 [History] Aspirin Enteric Coated [Aspirin EC] 81 mg PO QAM tablet. 05/22/17 [Rx] Atorvastatin [Lipitor] 10 mg PO QAM tablet 05/22/17 [Rx] Dabigatran [Pradaxa] 150 mg PO BID capsule 05/22/17 [Rx] Diltiazem CD (24hr) [Cardizem CD] 240 mg PO DAILY cap.er.24h 05/22/17 [Rx] Ipratropium/Albuterol Neb [Duoneb] 3 ml IH Q6HR #120 inhsol 05/22/17 [Rx] Lactulose 20 gm PO HS PRN 10 Days #300 ml 05/22/17 [Rx] Metoprolol [Lopressor] 50 mg PO BID tablet 05/22/17 [Rx] Montelukast [Singulair] 10 mg PO QPM tablet 05/22/17 [Rx] Nystatin [Nystatin Suspension] 500,000 units PO QID #120 ml 05/22/17 [Rx] Patient Taking Own Medication 0 each PO DAILY each 05/22/17 [Rx] Polyethylene Glycol 3350 [MiraLAX] 17 gm PO DAILY #30 powd.pack 05/22/17 [Rx] Sertraline [Zoloft] 50 mg PO QAM tablet 05/22/17 [Rx] Vitamin B Complex/Vit C/Vit E [Stresstab] 1 each PO DAILY tablet 05/22/17 [Rx] guaiFENesin [Guaifenesin] 400 mg PO BID #20 tablet 05/22/17 [Rx] predniSONE [PredniSONE] 10 mg PO DAILY #18 tablet 05/22/17 [Rx] Allergies/Adverse Reactions: 3 Allergy/AdvReac Type Severity Reaction Status Date / Time acetaminophen [From Percocet] Allergy Confusion Verified 09/02/16 13:59 gabapentin [From Neurontin] Allergy See Verified 02/14/15 00:55 Comments Oxycodone [From Percocet] Allergy Confusion Verified 09/02/16 13:59 Sulfa (Sulfonamide Allergy Itching Verified 02/14/15 00:55 Antibiotics) Date of admission: 05/16/17 20:03 [facility]ults: 05/16/17 20:14 Consult to Occupational Therapy [CONS] Routine Comment: Evaluate, develop and implement POC Reason for Consult: 5 days s/p right knee replacement. Here with pneumonia now Does patient have active BEDREST order?: No Is patient medically & hemodynamically stable?: Yes Consult to Physical Therapy [CONS] Routine Comment: Evaluate, develop and implement POC Reason for Consult: 5 days s/p right knee replacement. Here with pneumonia now Does patient have active BEDREST order?: No Is patient medically & hemodynamically stable?: Yes 05/20/17 15:42 Consult to Gastroenterology [CONS] Routine Consulting Provider: Gastroenterology [facility] Reason for Consult: anemia and heme positive stool Time Notified: 15:43 Call Completed: Yes Consult to Pulmonology [CONS] Routine Consulting Provider: [facility] Reason for Consult: persistent wheeze and CAMPOS Time Notified: 15:43 Call Completed: Yes 05/21/17 09:28 Consult to Insurance Writer [CONS] Routine Reason for SW Consult: home health or ECF 05/22/17 08:54 Consult to ENT [CONS] Routine Consulting Provider: ENT Taya Reason for Consult: vocal cord pathology Time Notified: 08:55 Call Completed: Yes Discharging clinician: Marcia Madrid Anticipated date of discharge: 05/22/17 - Constitutional Vitals: Temp Pulse Resp BP Pulse Ox 98.7 F 66 18 116/60 98 05/22/17 11:35 05/22/17 11:35 05/22/17 11:35 05/22/17 11:35 05/22/17 11:35 General appearance: Present: cooperative, A&O X 3, pleasant, no acute distress, obese, answers questions appropriately - Head Head exam: Present: atraumatic, normocephalic - Eye Eye exam: Present: PERRL, conjuntiva pink, sclera anicteric Pupils: Present: PERRL - Neck Neck exam general surgery: Present: supple, trachea midline. Absent: lymphadenopathy - Respiratory Respiratory exam: Present: decreased breath sounds, CTAB, wheezes. Absent: accessory muscle use, rales, rhonchi Additional comments: Few scattered wheezes but no bronchospasm on forced expiration - Cardiovascular Cardiovascular exam: Present: RRR, +S1, +S2. Absent: diastolic murmur, gallop, rubs, systolic murmur - GI/Abdominal GI/Abdominal exam: Present: normal bowel sounds, soft, no peritoneal signs. Absent: distended, tenderness - Extremities Exam Extremities exam: Present: warm, radial pulses palpable and symmetrical. Absent : calf tenderness, cyanotic, pedal edema Additional comments: Trace pedal edema bilaterally and right lower extremity edema secondary to surgical procedure but is much improved over the last several days. - Neurological Exam Neurological exam: Present: alert, CN II-XII intact, oriented X3, no focal deficits. Absent: pronater drift, facial droop, speech deficit - Skin Skin exam: Present: dry, intact, normal color, warm - Patient Status Disposition: Home Health Service Condition: Fair Functional capacity at discharge: independent ambulation Overall status at discharge: patient is progressing back to baseline - Discharge Instructions Follow Up With: Glenis Kirk MD [Primary Care Provider] - 05/22/17 8:30 am - Diet and Activity Activity: increase activity as tolerated Diet: low fat, low cholesterol, low salt diet - VTE Documentation of Mechanical Device: Graduated compression elastic hosiery
--- NOTE | 2017-05-22 15:08 | Physician Discharge Referral ---
Home Health/Hosp Referral Info Transfer to: Home Health Attending Provider: chris arana - Diagnosis (1) Anemia Priority: Primary Status: Chronic (2) Atrial fibrillation Priority: Primary Status: Chronic (3) COPD exacerbation Priority: Primary Status: Acute (4) Elevated troponin Priority: Primary Status: Resolved (5) HCAP (healthcare-associated pneumonia) Priority: Primary Status: Acute (6) Hypertension Priority: Primary Status: Chronic (7) CHF exacerbation Priority: Primary Status: Acute (8) CHRISTIANO (obstructive sleep apnea) Priority: Primary Status: Chronic - Respiratory Orders None Smoking Cessation: Smoking cessation has been advised. For more information, call the [facility] Tobacco Quit Line at 5-608-NUIS-NOW. - Dressing/Wound Care Site: keep right knee clean and dry, renee and care per surgical service - Diet/Nutrition Diet/Nutrition Orders: No Added Salt (DES), Cardiac - Activity Activity Orders: Ambulate - Services Needed Following services are medically necessary services: Nursing, Home Health Aide, Physical Therapy, Occupational Therapy Other Treatments: Nebulizer every 6 hours for wheezing - Transfer Medications Prescriptions: RX: Ipratropium/Albuterol Neb [Duoneb] 3 ml IH Q6HR #120 inhsol guaiFENesin [Guaifenesin] 400 mg PO BID #20 tablet RX: Lactulose 20 gm PO HS PRN 10 Days #300 ml PRN Reason: Constipation Nystatin [Nystatin Suspension] 500,000 units PO QID #120 ml RX: Polyethylene Glycol 3350 [MiraLAX] 17 gm PO DAILY #30 powd.pack predniSONE [PredniSONE] 10 mg PO DAILY #18 tablet Home Medications: RX: Albuterol Sulfate [Ventolin Hfa] 2 puff IH Q4H PRN 05/17/17 [History] RX: Aspirin [Lo-Dose Aspirin EC] 81 mg PO DAILY 05/17/17 [History] RX: Dabigatran [Pradaxa] 150 mg PO BID 05/17/17 [History] RX: Diltiazem HCl [Diltiazem 24Hr Cd] 240 mg PO DAILY 05/17/17 [History] RX: Ferrous Sulfate [Iron] 325 mg PO DAILY 05/17/17 [History] RX: Fluticasone/Salmeterol [Advair 500-50 Diskus] 1 puff IH BID 05/17/17 [ History] RX: Furosemide [Lasix] 40 mg PO DAILY 05/17/17 [History] RX: HYDROcodone/Acet 5/325 mg [[place] 5-325 mg] 1 tab PO Q4-6H PRN 05/17/17 [ History] RX: Losartan Potassium [Cozaar] 50 mg PO DAILY 05/17/17 [History] RX: Metoprolol [Lopressor] 25 mg PO BID 05/17/17 [History] RX: Montelukast [Singulair] 10 mg PO HS 05/17/17 [History] RX: Potassium Chloride [Klor-Con 10] 10 meq PO BID 05/17/17 [History] RX: Sertraline [Zoloft] 100 mg PO DAILY 05/17/17 [History] RX: Vit C/E/Zn/Coppr/Lutein/Zeaxan [Preservision Areds 2 Softgel] 1 cap PO BID 05/17/17 [History] Nystatin [Nystatin Suspension] 500,000 units PO QID #120 ml 05/22/17 [Rx] RX: Aspirin Enteric Coated [Aspirin EC] 81 mg PO QAM tablet. 05/22/17 [Rx] RX: Atorvastatin [Lipitor] 10 mg PO QAM tablet 05/22/17 [Rx] RX: Dabigatran [Pradaxa] 150 mg PO BID capsule 05/22/17 [Rx] RX: Diltiazem CD (24hr) [Cardizem CD] 240 mg PO DAILY cap.er.24h 05/22/17 [Rx] RX: Ipratropium/Albuterol Neb [Duoneb] 3 ml IH Q6HR #120 inhsol 05/22/17 [Rx] RX: Lactulose 20 gm PO HS PRN 10 Days #300 ml 05/22/17 [Rx] RX: Metoprolol [Lopressor] 50 mg PO BID tablet 05/22/17 [Rx] RX: Montelukast [Singulair] 10 mg PO QPM tablet 05/22/17 [Rx] RX: Patient Taking Own Medication 0 each PO DAILY each 05/22/17 [Rx] RX: Polyethylene Glycol 3350 [MiraLAX] 17 gm PO DAILY #30 powd.pack 05/22/17 [Rx ] RX: Sertraline [Zoloft] 50 mg PO QAM tablet 05/22/17 [Rx] RX: Vitamin B Complex/Vit C/Vit E [Stresstab] 1 each PO DAILY tablet 05/22/17 [ Rx] guaiFENesin [Guaifenesin] 400 mg PO BID #20 tablet 05/22/17 [Rx] predniSONE [PredniSONE] 10 mg PO DAILY #18 tablet 05/22/17 [Rx] Allergies/Adverse Reactions: 3 Allergy/AdvReac Type Severity Reaction Status Date / Time acetaminophen [From Percocet] Allergy Confusion Verified 09/02/16 13:59 gabapentin [From Neurontin] Allergy See Verified 02/14/15 00:55 Comments Oxycodone [From Percocet] Allergy Confusion Verified 09/02/16 13:59 Sulfa (Sulfonamide Allergy Itching Verified 02/14/15 00:55 Antibiotics) Certification: Further, I certify that my clinical findings support that this patient is homebound (i.e. absences from home require considerable and taxing effort and are for medical reasons or tenriism services or infrequently or short duration when for other reasons) because: Homebound Reason: Post-surgery restriction and or conditions limit ability to leave home, Leaving home requires considerable and taxing effort due to condition Attestation: My signature below is to certify that this patient is under my care and that I, or nurse practitioner, or a physician's emergency veterinary assistant working with me, has a face-to -face encounter with this patient.
[2017-05-22] MEDS ORDERED: Aminoglycoside Consult 1 EACH MC ONE (16:28)
== END 2017-05-22 16:29 | disposition home health service (06) | DRG 291 ==
LOC: EMEROO 15:16 → 3BNU 20:03
PROVIDERS: ADMIT Student in an Organized Health Care Education/Training Program; ATTEND Registered Nurse

== ENCOUNTER 2021-02-12 16:48 | Inpatient (IN) ==
[2021-02-12] MEDS ORDERED: *HR* FentaNYL (PF) 100 MCG/2 ML VIAL IVP ONE (20:16)
[2021-02-12 21:30] LABS: Basophils % 0.3 %; Hematocrit 38.4 % (35.3-44.9); Hemoglobin 12.3 g/dL (11.5-15.4); Lymphocytes # 1.2 K/mcL (0.6-4.6); Lymphocytes % 12.7 %; Mean Corpuscular Hemoglobin 30.4 pg (28.0-33.3); Mean Platelet Volume 9.8 fL (9.4-12.4); Monocytes # 0.7 K/mcL (0.0-1.3); Monocytes % 7.3 %; Neutrophils # 7.2 K/mcL (1.6-8.9); Platelet Count 178 K/mcL (140-400); Red Blood Count 4.04 M/mcL (3.82-4.97); Red Cell Distribution Width 14.1 % (11.5-14.5); Segmented Neutrophils % 78.7 %; White Blood Count 9.2 K/mcL (4.3-11.1)
[2021-02-12 21:38] LABS: INR 1.3; Prothrombin Time 14.8 Seconds (9.4-12.1)
[2021-02-12 21:43] LABS: Calcium 9.3 mg/dL (8.6-10.3); Potassium 4.3 mEq/L (3.5-5.1)
[2021-02-13] MEDS ORDERED: Acetaminophen 325 MG TABLET PO PRN (00:56)
[2021-02-13] MEDS ORDERED: *HR* OxyCODONE Immed Rel 5 MG TABLET PO PRN (00:56)
[2021-02-13] MEDS ORDERED: Naloxone 0.4 MG/ML INJ IVP PRN (00:56)
[2021-02-13] MEDS ORDERED: *HR* HYDROcodone/Acet 10/325 mg TABLET PO PRN (02:09)
[2021-02-13] MEDS ORDERED: Melatonin 3 MG TABLET PO PRN (03:20)
[2021-02-13 03:25] LABS: Hematocrit 36.2 % (35.3-44.9); Hemoglobin 11.8 g/dL (11.5-15.4); Mean Corpuscular HGB Conc 32.6 g/dL (31.6-35.5); Mean Corpuscular Hemoglobin 30.9 pg (28.0-33.3); Mean Corpuscular Volume 94.8 fL (83.0-100.0); Mean Platelet Volume 9.4 fL (9.4-12.4); Platelet Count 169 K/mcL (140-400); Red Blood Count 3.82 M/mcL (3.82-4.97); Red Cell Distribution Width 14.2 % (11.5-14.5); White Blood Count 7.7 K/mcL (4.3-11.1)
[2021-02-13 04:09] LABS: BUN/Creatinine Ratio 24 (6-26); Blood Urea Nitrogen 25 mg/dL (8-23); Carbon Dioxide 23 mEq/L (23-29); Chloride 107 mEq/L (98-107); Glucose 111 mg/dL (70-105); Osmolality,Calculated 291 (280-300); Potassium 4.3 mEq/L (3.5-5.1); Sodium 138 mEq/L (136-145); eGFR For African Americans > 60 (> 60); eGFR For Non-African Americans 51 (> 60)
[2021-02-13] MEDS: Ipratropium/Albuterol Neb 3 ML IH SCH ×3 (07:27→16:10)
[2021-02-13] MEDS: DilTIAZem CD (24hr) 240 MG CAP.ER.24H PO SCH (07:55)
[2021-02-13] MEDS: Vitamin B Complex/Vit C/Vit E 1 EACH TABLET PO SCH (07:55)
[2021-02-13] MEDS: Aspirin Enteric Coated 81 MG Tablet PO SCH (07:55)
[2021-02-13] MEDS ORDERED: DilTIAZem CD (24hr) 240 MG CAP.ER.24H PO SCH (09:00)
[2021-02-13] MEDS ORDERED: NON-FORMULARY MEDICATION 1 EACH EACH (Vit C/E/Zn/Coppr/Lutein/Zeaxan [Preservision Areds 2 PO SCH (09:00)
[2021-02-13] MEDS: Budesonide/Formoterol 160/4.5 1 PUFF INH IH SCH (10:34)
[2021-02-13] MEDS ORDERED: *HR* OxyCODONE Immed Rel 5 MG TABLET PO ONE (12:11)
[2021-02-13] MEDS ORDERED: tiZANidine 4 MG TABLET PO PRN (12:13)
[2021-02-13] MEDS ORDERED: *HR* FentaNYL (PF) 100 MCG/2 ML VIAL IVP PRN (12:15)
[2021-02-14] MEDS: Ipratropium/Albuterol Neb 3 ML IH SCH ×5 (00:07→21:11)
[2021-02-14] MEDS: Budesonide/Formoterol 160/4.5 1 PUFF INH IH SCH ×3 (00:07→21:11)
[2021-02-14] MEDS: DilTIAZem CD (24hr) 240 MG CAP.ER.24H PO SCH (08:03)
[2021-02-14] MEDS: Vitamin B Complex/Vit C/Vit E 1 EACH TABLET PO SCH (08:04)
[2021-02-14] MEDS: Aspirin Enteric Coated 81 MG Tablet PO SCH (08:04)
[2021-02-14] MEDS: *HR* HYDROcodone/Acet 10/325 mg TABLET PO PRN (08:21)
[2021-02-15] MEDS: Ipratropium/Albuterol Neb 3 ML IH SCH ×3 (02:54→18:34)
[2021-02-15] MEDS: Aspirin Enteric Coated 81 MG Tablet PO SCH (10:07)
[2021-02-15] MEDS: Vitamin B Complex/Vit C/Vit E 1 EACH TABLET PO SCH (10:07)
[2021-02-15] MEDS: DilTIAZem CD (24hr) 180 MG CAP.ER.24H PO SCH (10:11)
[2021-02-15] MEDS: *HR* HYDROcodone/Acet 10/325 mg TABLET PO PRN (10:11)
[2021-02-15] MEDS: *HR* HYDROcodone/Acet 5/325 mg TABLET PO PRN ×2 (13:39)
[2021-02-15] MEDS ORDERED: Ipratropium/Albuterol Neb 3 ML IH PRN (18:34)
[2021-02-15] MEDS: Budesonide/Formoterol 160/4.5 1 PUFF INH IH SCH ×2 (18:34→21:21)
[2021-02-16] MEDS: *HR* HYDROcodone/Acet 10/325 mg TABLET PO PRN (10:01)
[2021-02-16] MEDS: DilTIAZem CD (24hr) 180 MG CAP.ER.24H PO SCH (10:01)
[2021-02-16] MEDS: Aspirin Enteric Coated 81 MG Tablet PO SCH (10:01)
[2021-02-16] MEDS: Vitamin B Complex/Vit C/Vit E 1 EACH TABLET PO SCH (10:01)
[2021-02-16] MEDS: Budesonide/Formoterol 160/4.5 1 PUFF INH IH SCH (10:02)
[2021-02-16] MEDS ORDERED: Morphine Sulfate 2 MG/ML SYRINGE IVP ONE (11:27)
[2021-02-16 12:03] VITALS: BP 109/68; PULSE 63; TEMP 98.1; O2SAT 90
[2021-02-16 14:12] LABS: Influenza A PCR Negative (Negative); Influenza B PCR Negative (Negative); Resp. Syncytial Virus PCR Negative (Negative)
[2021-02-16 14:31] LABS: SARS-CoV-2 by PCR (In House) Negative (Negative)
== END 2021-02-16 15:45 | DRG 536 ==
LOC: 4WAOSI 16:48 → EMEROOARM 16:48 → 4WAOSI 02-13 00:08 → SUATTDRO 02-13 03:36
PROVIDERS: ADMIT Internal Medicine; ATTEND Student in an Organized Health Care Education/Training Program